=== PATIENT | male | born 1955 | race Caucasian/White ===

== ENCOUNTER 2019-12-01 19:53 | Emergency (ER) | payer MEDICAID, OTHER ==
[~2019-12-01] VITALS: Ht 190.5 cm; Wt 147.0 kg
[2019-12-01 21:20] LABS: Basophils # (auto) 0 10 ^3/uL (0-0.2); Basophils % (auto) 0.4 % (0.0-2.0); Eosinophils # (auto) 0 10 ^3/uL (0-0.8); Eosinophils % (auto) 0.4 % (0.0-7.0); Hematocrit 32.6 % (41.0-53.0); Lymphocytes # (auto) 1.6 10 ^3/uL (0.4-5.4); Lymphocytes % (auto) 15.5 % (10.0-50.0); Mean Corpuscular Hemoglobin 30.5 pg (28.0-32.0); Mean Corpuscular Hgb Conc. 33.6 g/dL (32.0-36.0); Mean Corpuscular Volume 90.6 fL (80.0-100.0); Monocytes # (auto) 0.7 10 ^3/uL (0-1.3); Monocytes % (auto) 6.6 % (0.0-12.0); Neutrophils # (auto) 7.8 10 ^3/uL (1.6-8.6); Neutrophils % (auto) 77.1 % (37.0-80.0); Platelet Count (auto) 233 10^3/uL (140-450); White Blood Cell 10.1 10^3/uL (4.4-10.8)
[2019-12-01 21:31] LABS: Alanine Aminotransferase 31 U/L (16-61); Albumin 3.4 g/dL (3.4-5.0); Anion Gap 5 (5-15); Aspartate Aminotransferase 11 U/L (15-37); BUN/Creatinine Ratio 17.9; Blood Urea Nitrogen 38 mg/dL (7-18); Calcium 8.3 mg/dL (8.5-10.1); Carbon Dioxide 24 mmol/L (21-32); Chloride 110 mmol/L (98-107); GFR African American 41 mL/min; GFR Non-African American 34 mL/min; Glucose 324 mg/dL (74-106); Sodium 139 mmol/L (136-145)
[2019-12-01 21:36] LABS: Alkaline Phosphatase 94 U/L (45-117); Bilirubin, Total 0.1 mg/dL (0.2-1.0)
[2019-12-01 21:38] LABS: Potassium 5.7 mmol/L (3.5-5.1)
[2019-12-01] MEDS ORDERED: SODIUM BICARBONATE 8.4% INJ 50ML SYRINGE IV ONE (22:45)
[2019-12-01] MEDS ORDERED: FUROSEMIDE 20 MG/2 ML VIAL IV ONE (22:45)
[2019-12-01] MEDS ORDERED: InsuLIN REG 1unit/0.01ml Soln (100units/ml) IV ONE (22:45)
[2019-12-01] MEDS ORDERED: DEXTROSE (50%) 50ML SYRG IV ONE (22:45)
[2019-12-02 00:30] VITALS: BP 122/67
[2019-12-02 01:00] LABS: Potassium 4.6 mmol/L (3.5-5.1)
== END 2019-12-02 01:13 | disposition home or self-care (01) ==
LOC: ER 19:53
DX: I51.7 Cardiomegaly (principal); I48.91 Unspecified atrial fibrillation; I11.0 Hypertensive heart disease with heart failure; I50.9 Heart failure, unspecified; J44.9 Chronic obstructive pulmonary disease, unspecified; E11.9 Type 2 diabetes mellitus without complications; K21.9 Gastro-esophageal reflux disease without esophagitis; I10 Essential (primary) hypertension; I25.2 Old myocardial infarction
CPT/HCPCS: 36415; 71045; 80053; 83735; 83880; 84132; 84443; 84484; 85025; 85379; 85610; 85730; 93005; 96374; 96375; 99285; J1815; J1940; J7042

== ENCOUNTER 2019-12-13 17:09 | Inpatient (IN) | payer MEDICAID ==
[~2019-12-13] VITALS: Ht 190.5 cm; Wt 147.0 kg
[2019-12-13] MEDS ORDERED: MORPHINE SULFATE 4 MG/ML SYR/VIAL IV ONE (18:15)
[2019-12-13] MEDS ORDERED: ONDANSETRON HCL 4 MG/2 ML VIAL IV ONE (18:15)
[2019-12-13 18:21] LABS: Basophils # (auto) 0.1 10 ^3/uL (0-0.2); Basophils % (auto) 0.5 % (0.0-2.0); Eosinophils # (auto) 0.1 10 ^3/uL (0-0.8); Eosinophils % (auto) 0.5 % (0.0-7.0); Hematocrit 35.6 % (41.0-53.0); Hemoglobin 12.1 g/dL (13.5-17.5); Lymphocytes # (auto) 1.6 10 ^3/uL (0.4-5.4); Lymphocytes % (auto) 11.2 % (10.0-50.0); Mean Corpuscular Hemoglobin 30.5 pg (28.0-32.0); Mean Corpuscular Volume 89.8 fL (80.0-100.0); Monocytes # (auto) 0.8 10 ^3/uL (0-1.3); Monocytes % (auto) 5.9 % (0.0-12.0); Neutrophils # (auto) 11.6 10 ^3/uL (1.6-8.6); Neutrophils % (auto) 81.9 % (37.0-80.0); Platelet Count (auto) 224 10^3/uL (140-450); Red Blood Cells 3.96 10^6/uL (4.5-5.90); Red Cell Distribution Width 13.2 % (11.8-14.3); White Blood Cell 14.2 10^3/uL (4.4-10.8)
[2019-12-13 18:32] LABS: Alanine Aminotransferase 31 U/L (16-61); Albumin 3.5 g/dL (3.4-5.0); Anion Gap 8 (5-15); BUN/Creatinine Ratio 17.8; Blood Urea Nitrogen 58 mg/dL (7-18); Calcium 8.6 mg/dL (8.5-10.1); Carbon Dioxide 21 mmol/L (21-32); Chloride 103 mmol/L (98-107); GFR African American 25 mL/min; GFR Non-African American 21 mL/min; Glucose 361 mg/dL (74-106); Potassium 5.2 mmol/L (3.5-5.1); Sodium 132 mmol/L (136-145)
[2019-12-13 18:37] LABS: Alkaline Phosphatase 93 U/L (45-117); Aspartate Aminotransferase 6 U/L (15-37); Bilirubin, Total 0.3 mg/dL (0.2-1.0); Total Protein 7.9 g/dL (6.4-8.2)
[2019-12-13] MEDS: NOREPINEPHRINE 8 MG/250ML KIT 250 ML IV SCH (19:35)
[2019-12-13] MEDS ORDERED: NOREPINEPHRINE 8 MG/250ML KIT 250 ML IV ONE (19:38)
[2019-12-13] MEDS ORDERED: SODIUM CHLORIDE 0.9% 250 ML IV ONE (19:45)
[2019-12-13] MEDS ORDERED: NITROGLYCERIN 0.4 MG SL TAB SL PRN (20:00)
[2019-12-13] MEDS ORDERED: DEXTROSE (50%) 50ML SYRG IV PRN ×2 (20:00→20:30)
[2019-12-13] MEDS ORDERED: ONDANSETRON HCL 4 MG/2 ML VIAL IV PRN (20:00)
[2019-12-13] MEDS ORDERED: SODIUM ZIRCONIUM CYCL 10 GM PAK PO ONE (20:00)
[2019-12-13] MEDS ORDERED: InsuLIN REG 1unit/0.01ml Soln (100units/ml) IV ONE (20:00)
[2019-12-13] MEDS ORDERED: DEXTROSE (50%) 50ML SYRG IV ONE (20:00)
[2019-12-13] MEDS ORDERED: MORPHINE SULF INJ 2 MG/ML SYRINGE 1ML IV PRN (20:00)
[2019-12-13] MEDS ORDERED: ACETAMINOPHEN 500 MG TAB PO PRN (20:00)
[2019-12-13] MEDS ORDERED: SODIUM BICARBONATE 8.4% INJ 50ML SYRINGE ONE (20:35)
[2019-12-13] MEDS: SODIUM BICARBONATE 50ML VIAL 50 ML in SOD CHL 0.45% 1,000 ML IV SCH (20:42)
[2019-12-13] MEDS: InsuLIN REG 1unit/0.01ml Soln (100units/ml) SC SCH (21:55)
[2019-12-13] MEDS: ATORVASTATIN 20 MG TAB PO SCH (21:55)
[2019-12-13] MEDS: ACCU-CHEK COMFORT CURVE STRIP VI SCH (21:55)
[2019-12-13] MEDS ORDERED: ACCU-CHEK COMFORT CURVE STRIP VI SCH (22:00)
[2019-12-13] MEDS ORDERED: InsuLIN REG 1unit/0.01ml Soln (100units/ml) SC SCH (22:00)
[2019-12-13] MEDS ORDERED: ALBUMIN 5% 250 ML IV ONE (23:00)
[2019-12-14 00:38] LABS: Urine Bacteria MOD /hpf (None Seen); Urine Blood Negative /uL (Negative); Urine Hyaline Cast MOD /lpf (0 - 2); Urine Mucus FEW (None Seen); Urine Specific Gravity 1.012 (1.001-1.035); Urine WBC 9 /hpf (0 - 3)
[2019-12-14 01:04] LABS: Creatinine, Urine 144 mg/dL (30.0-125.0); Sodium Urine 26 mmol/L (40-220)
[2019-12-14] MEDS: HYDROcodone-ACET 5/325MG TAB PO PRN ×2 (05:52→17:50)
[2019-12-14 06:01] LABS: Basophils # (auto) 0.1 10 ^3/uL (0-0.2); Basophils % (auto) 0.9 % (0.0-2.0); Eosinophils # (auto) 0.2 10 ^3/uL (0-0.8); Hematocrit 30.4 % (41.0-53.0); Hemoglobin 10.4 g/dL (13.5-17.5); Lymphocytes % (auto) 19.5 % (10.0-50.0); Mean Corpuscular Hemoglobin 30.7 pg (28.0-32.0); Mean Corpuscular Hgb Conc. 34.4 g/dL (32.0-36.0); Mean Corpuscular Volume 89.1 fL (80.0-100.0); Monocytes # (auto) 1.1 10 ^3/uL (0-1.3); Monocytes % (auto) 10.4 % (0.0-12.0); Neutrophils # (auto) 6.9 10 ^3/uL (1.6-8.6); Neutrophils % (auto) 67.2 % (37.0-80.0); Platelet Count (auto) 171 10^3/uL (140-450); Red Blood Cells 3.41 10^6/uL (4.5-5.90); Red Cell Distribution Width 13.2 % (11.8-14.3); White Blood Cell 10.3 10^3/uL (4.4-10.8)
[2019-12-14 06:22] LABS: Calcium 8.3 mg/dL (8.5-10.1); Potassium 4.6 mmol/L (3.5-5.1)
[2019-12-14 06:24] LABS: BUN/Creatinine Ratio 16.4
[2019-12-14] MEDS: SODIUM BICARBONATE 50ML VIAL 50 ML in SOD CHL 0.45% 1,000 ML IV SCH (06:30)
[2019-12-14] MEDS: ACCU-CHEK COMFORT CURVE STRIP VI SCH ×4 (06:41→22:41)
[2019-12-14] MEDS: InsuLIN REG 1unit/0.01ml Soln (100units/ml) SC SCH ×4 (06:42→22:55)
[2019-12-14] MEDS: ADENOSINE 123 MG in GIVE UN-DILUTED 0 ML IV STA ×2 (08:28→10:26)
[2019-12-14] MEDS ORDERED: cefTRIAXone 1GM/50ML D5W 50 ML IV SCH (09:00)
[2019-12-14 09:50] VITALS: BP 113/52
[2019-12-14] MEDS: FAMOTIDINE 20 MG TAB PO SCH (10:00)
[2019-12-14] MEDS: ASPirin-EC 81 mg tab PO SCH (10:00)
--- NOTE | 2019-12-14 10:10 | NUR ---
Patient in room, new admit from ER. Patient alert and orientedx4 no s/s of distress noted at this time. Patient oriented to room, call light and facility.
[2019-12-14] MEDS ORDERED: OPTISON 3ml Vial for INJ IV ONE (11:17)
--- NOTE | 2019-12-14 12:15 | NUR ---
PATIENT DECLINED TY INSERTION, EXPLAINED THE BENEFITS TO PATIENT AND PATIENT CONTINUED TO REFUSE, STATED HE WOULD USE THE URINAL TO MEASURE URINE.
[2019-12-14] MEDS: AZITHROMYCIN 500MG/ 250ML 250 ML IV SCH (12:16)
[2019-12-14 13:00] VITALS: BP 119/70
--- NOTE | 2019-12-14 13:54 | NUR ---
PER STRESS LAB PATIENT TO HAVE FIRST HALF OF TEST TODAY AN SECOND HALF TOMORROW. OK TO EAT LUNCH.
[2019-12-14] MEDS: MORPHINE SULF INJ 2 MG/ML SYRINGE 1ML IV PRN ×2 (14:19→22:41)
--- NOTE | 2019-12-14 16:30 | NUR ---
Patient taken down to nuc med for first half of stress test.
[2019-12-14 16:42] VITALS: BP 103/56
[2019-12-14] MEDS: NOREPINEPHRINE 8 MG/250ML KIT 250 ML IV SCH (17:39)
--- NOTE | 2019-12-14 18:01 | NUR ---
Patient states he gave a list to the ER nurse last week and she inputted them. No medications show as inputted, patient will attempt to obtain a list again.
--- NOTE | 2019-12-14 19:30 | NUR ---
Opening Shift Note Assumed care of patient, awake and alert. No S/S of distress/SOB or pain. Instructed on POC and to call for assist PRN. Bed in lowest locked position, call light within reach, side rails up x2, fall precautions in place. Will continue to monitor for changes Q1hr and PRN.
[2019-12-14 21:30] VITALS: BP 103/65
[2019-12-14] MEDS: ATORVASTATIN 20 MG TAB PO SCH (22:40)
[2019-12-14] MEDS: cefTRIAXone 1GM/50ML D5W 50 ML IV SCH (22:40)
[2019-12-14] MEDS: SODIUM CHLORIDE 0.9% 1,000 ML IV SCH (22:40)
[2019-12-15 05:00] VITALS: BP 116/68
[2019-12-15 06:11] LABS: Basophils # (auto) 0.1 10 ^3/uL (0-0.2); Basophils % (auto) 0.8 % (0.0-2.0); Eosinophils # (auto) 0.2 10 ^3/uL (0-0.8); Eosinophils % (auto) 3.1 % (0.0-7.0); Hematocrit 32.4 % (41.0-53.0); Hemoglobin 11.1 g/dL (13.5-17.5); Lymphocytes # (auto) 1.5 10 ^3/uL (0.4-5.4); Lymphocytes % (auto) 19.9 % (10.0-50.0); Mean Corpuscular Hemoglobin 30.6 pg (28.0-32.0); Mean Corpuscular Hgb Conc. 34.2 g/dL (32.0-36.0); Mean Corpuscular Volume 89.5 fL (80.0-100.0); Monocytes # (auto) 0.9 10 ^3/uL (0-1.3); Neutrophils % (auto) 65.2 % (37.0-80.0); Nucleated Red Blood Cells % 0.1 %; Platelet Count (auto) 171 10^3/uL (140-450); Red Blood Cells 3.62 10^6/uL (4.5-5.90); Red Cell Distribution Width 13.1 % (11.8-14.3); White Blood Cell 7.7 10^3/uL (4.4-10.8)
[2019-12-15 06:30] LABS: BUN/Creatinine Ratio 20.3; Potassium 4.8 mmol/L (3.5-5.1)
--- NOTE | 2019-12-15 06:30 | NUR ---
Patient alert and oriented x4, patient still complains of chest pain which he describes as chronic, can come and go when he is home as well. patient stated chest pain is still there and hurts all the time.
[2019-12-15 06:31] LABS: Calcium 8.3 mg/dL (8.5-10.1)
[2019-12-15] MEDS: InsuLIN REG 1unit/0.01ml Soln (100units/ml) SC SCH ×4 (06:35→21:37)
[2019-12-15] MEDS: ACCU-CHEK COMFORT CURVE STRIP VI SCH ×4 (06:35→21:38)
--- NOTE | 2019-12-15 07:38 | NUR ---
patient NPO for Stress test.
[2019-12-15 09:00] VITALS: BP 131/75
[2019-12-15] MEDS: MORPHINE SULF INJ 2 MG/ML SYRINGE 1ML IV PRN ×2 (09:00→19:22)
[2019-12-15] MEDS: SODIUM CHLORIDE 0.9% 1,000 ML IV SCH ×2 (09:09→22:17)
[2019-12-15] MEDS: ASPirin-EC 81 mg tab PO SCH ×2 (09:10→11:13)
[2019-12-15] MEDS: cefTRIAXone 1GM/50ML D5W 50 ML IV SCH ×2 (09:10→21:37)
[2019-12-15] MEDS: FAMOTIDINE 20 MG TAB PO SCH (09:10)
[2019-12-15] MEDS: AZITHROMYCIN 500MG/ 250ML 250 ML IV SCH (09:32)
[2019-12-15] MEDS ORDERED: ALBUTEROL SULF 2.5 MG/0.5ML(0.5%) NEB SOLN NEB ONE (10:45)
--- NOTE | 2019-12-15 10:58 | NUR ---
Patient returned from stress test, patient did not tolerate test, was not able to complete. Patient received breathing treatment and was placed on oxygen. Patient is stable, resting in bed with nasal canula on no s/s of distress at this time.
--- NOTE | 2019-12-15 11:00 | NUR ---
patient will not be re-testing, patient can eat.
[2019-12-15] MEDS: HYDROcodone-ACET 5/325MG TAB PO PRN (11:13)
[2019-12-15 11:15] VITALS: BP 113/73
--- NOTE | 2019-12-15 11:30 | NUR ---
Patient c/o increase in chest pain after the stress test attempt, jazmine at bedside, ok to administer PRN morphine for chest pain. Offered patient Nitro per protocol however patient refused, states "it doesn't work and its a waste of pils, I have some at home and try it all the time", MD aware.
[2019-12-15 13:00] VITALS: BP 125/70
[2019-12-15 17:00] VITALS: BP 123/66
[2019-12-15] MEDS: ATORVASTATIN 20 MG TAB PO SCH (21:37)
[2019-12-15 22:00] VITALS: BP 133/74
[2019-12-16 05:00] VITALS: BP 116/55
--- NOTE | 2019-12-16 06:15 | NUR ---
IV insertion IV access obtained, via clean sterile technique by inserting 22 gauge catheter at LEFT AC after 2 attempt(s). IV secured properly. No trauma to site. Patient tolerated procedure well. NOTE: Previous IV leaking. Removed with catheter intact. Pressure dressing applied.
[2019-12-16] MEDS: MORPHINE SULF INJ 2 MG/ML SYRINGE 1ML IV PRN ×3 (06:30→18:04)
[2019-12-16] MEDS: InsuLIN REG 1unit/0.01ml Soln (100units/ml) SC SCH ×3 (06:39→17:54)
[2019-12-16] MEDS: ACCU-CHEK COMFORT CURVE STRIP VI SCH ×3 (06:39→17:53)
[2019-12-16 07:06] LABS: Basophils # (auto) 0.1 10 ^3/uL (0-0.2); Eosinophils # (auto) 0.2 10 ^3/uL (0-0.8); Eosinophils % (auto) 2.4 % (0.0-7.0); Hematocrit 32.8 % (41.0-53.0); Hemoglobin 11.4 g/dL (13.5-17.5); Lymphocytes # (auto) 1.7 10 ^3/uL (0.4-5.4); Lymphocytes % (auto) 18.1 % (10.0-50.0); Mean Corpuscular Hemoglobin 30.8 pg (28.0-32.0); Mean Corpuscular Hgb Conc. 34.8 g/dL (32.0-36.0); Mean Corpuscular Volume 88.4 fL (80.0-100.0); Monocytes # (auto) 0.8 10 ^3/uL (0-1.3); Neutrophils # (auto) 6.4 10 ^3/uL (1.6-8.6); Neutrophils % (auto) 69.5 % (37.0-80.0); Platelet Count (auto) 200 10^3/uL (140-450); Red Blood Cells 3.71 10^6/uL (4.5-5.90); White Blood Cell 9.2 10^3/uL (4.4-10.8)
[2019-12-16 07:25] LABS: BUN/Creatinine Ratio 21.6; Calcium 8.8 mg/dL (8.5-10.1); Potassium 4.6 mmol/L (3.5-5.1)
--- NOTE | 2019-12-16 07:30 | NUR ---
Opening shift note Assumed care of patient from NOC Rn. Patient is Aox4, no signs and symptoms of distress noted. Bed is in lowest locked position, side rails up x2, can call light within reach. Updated patient on plan of care and patient verbalized understanding. Will continue to monitor q1hr and PRN.
[2019-12-16 09:00] VITALS: BP 133/77
[2019-12-16] MEDS ORDERED: AZITHROMYCIN 250 MG TAB PO SCH (10:00)
[2019-12-16] MEDS: cefTRIAXone 1GM/50ML D5W 50 ML IV SCH (10:21)
[2019-12-16] MEDS: FAMOTIDINE 20 MG TAB PO SCH (10:21)
[2019-12-16] MEDS: SODIUM CHLORIDE 0.9% 1,000 ML IV SCH (11:45)
[2019-12-16 13:00] VITALS: BP 133/74
--- NOTE | 2019-12-16 14:40 | NUR ---
Cooling Measures applied. Patient currently has temp of 99.2 , cooling measures in place.
--- NOTE | 2019-12-16 16:00 | NUR ---
Temperature reassessment Patients temperature is 99.4. Patient removed ice packs, educated patient about the importance of maintaining cooling measures. Patient verbalized understanding and cooling measures are in place. Will continue to monitor q1hr and PRN .
[2019-12-16 17:00] VITALS: BP 125/76
--- NOTE | 2019-12-16 17:45 | NUR ---
temperature reassessment Patients temperature is 98.2. No signs and symptoms of distress noted. Will continue care.
--- NOTE | 2019-12-16 19:20 | NUR ---
Opening Shift Note Assumed care of patient, awake, alert and oriented x4, on room air with even and unlabored respirations, no S/S of distress/SOB or pain. Patient able to ambulate independently, bed in lowest locked position, side rails x2, and call light within reach. Instructed on POC and to call for assist PRN, will continue to monitor for changes Q1hr and PRN.
--- NOTE | 2019-12-16 19:27 | NUR ---
End of shift note Endorsed care to NOC EMILIA Hanley. No s/s of distress noted.
--- NOTE | 2019-12-16 19:50 | NUR ---
AMA Note ROBERT FLANNERY states they want to leave the hospital Against Medical Advice (AMA). Patient encouraged to stay for further treatment/stabilization. Andrea Kamara NP Hospitalist notified of patient's wishes. Patient advised of the risks and benefits of leaving AMA. Patient verbalized understanding. Patient encouraged to return to the ER if symptoms do not improve or worsen.
--- NOTE | 2019-12-16 20:50 | NUR ---
AMA PATIENT SIGNED AMA, TELE MONITOR AND IV WERE DC'D FROM PATIENT.
== END 2019-12-16 20:50 | disposition left against medical advice (07) | DRG 720 ==
LOC: ER 17:09 → TELE 17:10 → TELE-WESTW 12-14 09:50
PROVIDERS: ADMIT Nurse Practitioner Acute Care; ATTEND Internal Medicine Nephrology
DX: A41.9 Sepsis, unspecified organism (principal); N17.0 Acute kidney failure with tubular necrosis; E11.22 Type 2 diabetes mellitus with diabetic chronic kidney disease; E11.65 Type 2 diabetes mellitus with hyperglycemia; E66.01 Morbid (severe) obesity due to excess calories; I24.9 Acute ischemic heart disease, unspecified; I48.0 Paroxysmal atrial fibrillation; R55 Syncope and collapse; N18.3 Chronic kidney disease, stage 3 (moderate); E87.5 Hyperkalemia; J44.9 Chronic obstructive pulmonary disease, unspecified; Z91.14 Patient's other noncompliance with medication regimen; N39.0 Urinary tract infection, site not specified; Z53.29 Procedure and treatment not carried out because of patient's decision for other reasons; E78.5 Hyperlipidemia, unspecified; N28.1 Cyst of kidney, acquired; I13.0 Hypertensive heart and chronic kidney disease with heart failure and stage 1 through stage 4 chronic kidney disease, or unspecified chronic kidney disease; I50.9 Heart failure, unspecified; Z82.49 Family history of ischemic heart disease and other diseases of the circulatory system; Z68.41 Body mass index [BMI] 40.0-44.9, adult
CPT/HCPCS: 36415; 71045; 76775; 80048; 80053; 81001; 82570; 82962; 83036; 83880; 83930; 84100; 84300; 84484; 85025; 85379; 86141; 87040; 87086; 93005; 93306; 96361; 96365; 96375; 99291; G0378; J0153; J0696; J1815; J2405; Q9956

== ENCOUNTER 2020-08-15 19:29 | Emergency (ER) | payer MEDICAID ==
[~2020-08-15] VITALS: Ht 190.5 cm; Wt 145.1 kg
[2020-08-15 21:14] LABS: Basophils # (auto) 0 10 ^3/uL (0-0.2); Basophils % (auto) 0.3 % (0.0-2.0); Eosinophils # (auto) 0.3 10 ^3/uL (0-0.8); Eosinophils % (auto) 3.3 % (0.0-7.0); Hematocrit 35.6 % (41.0-53.0); Hemoglobin 12.1 g/dL (13.5-17.5); Lymphocytes # (auto) 1.9 10 ^3/uL (0.4-5.4); Lymphocytes % (auto) 21.3 % (10.0-50.0); Mean Corpuscular Hemoglobin 28.8 pg (28.0-32.0); Mean Corpuscular Hgb Conc. 34.1 g/dL (32.0-36.0); Mean Corpuscular Volume 84.4 fL (80.0-100.0); Monocytes # (auto) 0.8 10 ^3/uL (0-1.3); Monocytes % (auto) 8.8 % (0.0-12.0); Neutrophils # (auto) 5.9 10 ^3/uL (1.6-8.6); Neutrophils % (auto) 66.3 % (37.0-80.0); Nucleated Red Blood Cells % 0.1 %; Platelet Count (auto) 210 10^3/uL (140-450); Red Blood Cells 4.22 10^6/uL (4.5-5.90); Red Cell Distribution Width 14.3 % (11.8-14.3)
[2020-08-15] MEDS ORDERED: ONDANSETRON HCL 4 MG/2 ML VIAL IV ONE (21:15)
[2020-08-15] MEDS ORDERED: MORPHINE SULFATE 4 MG/ML SYR/VIAL IV ONE (21:15)
[2020-08-15 21:35] LABS: INR 0.97 (0.9-1.15); Partial Thromboplastin Time 24.3 sec (23.0-31.2)
[2020-08-15 21:37] LABS: Albumin 3.3 g/dL (3.4-5.0); Anion Gap 3 (5-15); Blood Urea Nitrogen 27 mg/dL (7-18); Calcium 8.2 mg/dL (8.5-10.1); Carbon Dioxide 27 mmol/L (21-32); Chloride 104 mmol/L (98-107); Glucose 334 mg/dL (74-106); Potassium 4.8 mmol/L (3.5-5.1); Sodium 134 mmol/L (136-145)
[2020-08-15 21:44] LABS: Alanine Aminotransferase 50 U/L (16-61); Alkaline Phosphatase 84 U/L (45-117); Aspartate Aminotransferase 28 U/L (15-37); BUN/Creatinine Ratio 13.5; Bilirubin, Total 0.3 mg/dL (0.2-1.0); GFR African American 43 mL/min; GFR Non-African American 36 mL/min; Total Protein 7.4 g/dL (6.4-8.2)
[2020-08-15 23:48] VITALS: BP 130/66
== END 2020-08-16 00:19 | disposition left against medical advice (07) ==
LOC: EDBD 19:29 → ER 19:33
DX: R07.2 Precordial pain (principal); R10.9 Unspecified abdominal pain; E11.9 Type 2 diabetes mellitus without complications; I11.0 Hypertensive heart disease with heart failure; I50.9 Heart failure, unspecified; K21.9 Gastro-esophageal reflux disease without esophagitis
CPT/HCPCS: 36415; 71045; 74176; 80053; 82962; 83880; 84484; 85025; 85610; 85730; 93005; 96374; 96375; 99285; J2270; J2405

== ENCOUNTER 2021-02-26 14:52 | Emergency (ER) | payer OTHER, MEDICAID ==
[~2021-02-26] VITALS: Ht 190.5 cm; Wt 140.2 kg
[2021-02-26 14:53] VITALS: BP 94/69
[2021-02-26 15:41] LABS: Basophils # (auto) 0 10 ^3/uL (0-0.2); Basophils % (auto) 0.3 % (0.0-2.0); Eosinophils # (auto) 0.4 10 ^3/uL (0-0.8); Eosinophils % (auto) 3.6 % (0.0-7.0); Hematocrit 37.4 % (41.0-53.0); Hemoglobin 12.7 g/dL (13.5-17.5); Lymphocytes # (auto) 2.5 10 ^3/uL (0.4-5.4); Lymphocytes % (auto) 23.7 % (10.0-50.0); Mean Corpuscular Hemoglobin 29.5 pg (28.0-32.0); Mean Corpuscular Hgb Conc. 34.1 g/dL (32.0-36.0); Mean Corpuscular Volume 86.4 fL (80.0-100.0); Monocytes # (auto) 0.8 10 ^3/uL (0-1.3); Monocytes % (auto) 7.3 % (0.0-12.0); Neutrophils # (auto) 6.9 10 ^3/uL (1.6-8.6); Neutrophils % (auto) 65.1 % (37.0-80.0); Nucleated Red Blood Cells % 0.1 %; Red Blood Cells 4.32 10^6/uL (4.5-5.90); Red Cell Distribution Width 13.9 % (11.8-14.3); White Blood Cell 10.6 10^3/uL (4.4-10.8)
[2021-02-26] MEDS ORDERED: FUROSEMIDE 20 MG TAB PO ONE (15:45)
[2021-02-26 16:00] LABS: Alanine Aminotransferase 23 U/L (16-61); Anion Gap 6 (5-15); Aspartate Aminotransferase 10 U/L (15-37); BUN/Creatinine Ratio 8.2; Blood Urea Nitrogen 18 mg/dL (7-18); Calcium 8.4 mg/dL (8.5-10.1); Carbon Dioxide 25 mmol/L (21-32); Chloride 106 mmol/L (98-107); GFR African American 39 mL/min; GFR Non-African American 32 mL/min; Glucose 197 mg/dL (74-106); Potassium 4.4 mmol/L (3.5-5.1); Sodium 137 mmol/L (136-145)
[2021-02-26 16:05] LABS: Alkaline Phosphatase 79 U/L (45-117); Bilirubin, Total 0.2 mg/dL (0.2-1.0); Total Protein 7.5 g/dL (6.4-8.2)
== END 2021-02-26 17:24 | disposition home or self-care (01) ==
LOC: ER 14:52
DX: I11.0 Hypertensive heart disease with heart failure (principal); I50.9 Heart failure, unspecified; R00.2 Palpitations; E11.9 Type 2 diabetes mellitus without complications; J44.9 Chronic obstructive pulmonary disease, unspecified; I25.2 Old myocardial infarction; I48.91 Unspecified atrial fibrillation; K21.9 Gastro-esophageal reflux disease without esophagitis
CPT/HCPCS: 36415; 71046; 80053; 84484; 85025; 93005

== ENCOUNTER 2021-10-16 00:18 | Emergency (ER) | payer OTHER, MEDICAID ==
[~2021-10-16] VITALS: Ht 188 cm; Wt 113.4 kg
[2021-10-16 01:01] LABS: Basophils # (auto) 0.1 10 ^3/uL (0-0.2); Eosinophils # (auto) 0.3 10 ^3/uL (0-0.8); Eosinophils % (auto) 2.4 % (0.0-7.0); Hematocrit 39.9 % (41.0-53.0); Hemoglobin 13.6 g/dL (13.5-17.5); Lymphocytes # (auto) 1.6 10 ^3/uL (0.4-5.4); Lymphocytes % (auto) 12.8 % (10.0-50.0); Mean Corpuscular Hemoglobin 28.9 pg (28.0-32.0); Mean Corpuscular Hgb Conc. 33.9 g/dL (32.0-36.0); Monocytes # (auto) 0.6 10 ^3/uL (0-1.3); Monocytes % (auto) 4.5 % (0.0-12.0); Neutrophils # (auto) 10.2 10 ^3/uL (1.6-8.6); Neutrophils % (auto) 79.3 % (37.0-80.0); Nucleated Red Blood Cells % 0.1 %; Red Cell Distribution Width 14.2 % (11.8-14.3); White Blood Cell 12.9 10^3/uL (4.4-10.8)
[2021-10-16 01:19] LABS: Albumin 3.3 g/dL (3.4-5.0); Calcium 8.5 mg/dL (8.5-10.1); Potassium 4.4 mmol/L (3.5-5.1)
[2021-10-16 01:22] LABS: Bilirubin, Total 0.3 mg/dL (0.2-1.0)
[2021-10-16] MEDS ORDERED: IOHEXOL 300 MG/ML 100ML BOTTLE IJ ONE ×2 (01:55→04:03)
[2021-10-16] MEDS ORDERED: SODIUM CHLORIDE 0.9% 500 ML IV ONE (02:00)
[2021-10-16] MEDS ORDERED: ONDANSETRON HCL 4 MG/2 ML VIAL IV ONE (02:00)
[2021-10-16] MEDS ORDERED: HYDROmorphone HCL 2 MG/ML VL/or syr IV ONE ×3 (02:00→07:00)
[2021-10-16 02:36] LABS: INR 1.1 (0.9-1.15)
[2021-10-16] MEDS ORDERED: ONDA-144 PO (06:29)
[2021-10-16] MEDS ORDERED: AMOX-277 PO (06:29)
[2021-10-16 07:00] VITALS: BP 159/103
== END 2021-10-16 06:27 | disposition home or self-care (01) ==
LOC: EDBD 00:18 → ER 00:18 → EDUNIT# 00:18 → ER 06:27
DX: K57.32 Diverticulitis of large intestine without perforation or abscess without bleeding (principal); I11.0 Hypertensive heart disease with heart failure; I50.9 Heart failure, unspecified; I48.91 Unspecified atrial fibrillation; I25.2 Old myocardial infarction; K21.9 Gastro-esophageal reflux disease without esophagitis
CPT/HCPCS: 36415; 71045; 74177; 80053; 83605; 83690; 84484; 85025; 85610; 93005; 96361; 96374; 96375; 96376; 99285; J1170; J2405; J7040; Q9967

== ENCOUNTER 2021-10-18 15:22 | Inpatient (IN) | payer OTHER, MEDICAID ==
[~2021-10-18] VITALS: Ht 190.5 cm; Wt 149.0 kg
[~2021-10-18 15:22] MED LIST: AMOX-277 PO; ONDA-144 PO
[2021-10-18] MEDS ORDERED: ALUM & MAG HYDROX-SIMETH LIQ(MAALOX) 30 ML PO ONE (15:45)
[2021-10-18] MEDS ORDERED: SODIUM CHLORIDE 0.9% 1,000 ML IV ONE (15:45)
[2021-10-18] MEDS ORDERED: DONNATAL 5ml ORAL Elix (BELLADONNA ALK-PHENOBARB) PO ONE (15:45)
[2021-10-18] MEDS ORDERED: LIDOCAINE VISCOUS 2% 15ML UD PO ONE (15:45)
[2021-10-18 16:11] LABS: Basophils # (auto) 0.1 10 ^3/uL (0-0.2); Basophils % (auto) 1.2 % (0.0-2.0); Eosinophils # (auto) 0.2 10 ^3/uL (0-0.8); Eosinophils % (auto) 1.8 % (0.0-7.0); Hematocrit 38.2 % (41.0-53.0); Hemoglobin 13.5 g/dL (13.5-17.5); Lymphocytes # (auto) 1.7 10 ^3/uL (0.4-5.4); Lymphocytes % (auto) 15.7 % (10.0-50.0); Mean Corpuscular Hemoglobin 29.9 pg (28.0-32.0); Mean Corpuscular Hgb Conc. 35.3 g/dL (32.0-36.0); Mean Corpuscular Volume 84.7 fL (80.0-100.0); Monocytes # (auto) 0.9 10 ^3/uL (0-1.3); Monocytes % (auto) 8.6 % (0.0-12.0); Neutrophils # (auto) 7.7 10 ^3/uL (1.6-8.6); Neutrophils % (auto) 72.7 % (37.0-80.0); Red Blood Cells 4.51 10^6/uL (4.5-5.90); Red Cell Distribution Width 14.5 % (11.8-14.3); White Blood Cell 10.5 10^3/uL (4.4-10.8)
[2021-10-18 16:32] LABS: Albumin 3.3 g/dL (3.4-5.0); Calcium 8.4 mg/dL (8.5-10.1); Potassium 3.5 mmol/L (3.5-5.1)
[2021-10-18 16:36] LABS: Bilirubin, Total 0.4 mg/dL (0.2-1.0); Lactic Acid w/Reflex 2.1 mmol/L (0.4-2.0); Total Protein 7.4 g/dL (6.4-8.2)
[2021-10-18] MEDS ORDERED: NITROGLYCERIN 0.4 MG SL TAB SL ONE ×2 (21:30→21:45)
[2021-10-18] MEDS ORDERED: DEXTROSE (50%) 50ML SYRG IV PRN (21:45)
[2021-10-18] MEDS ORDERED: ONDANSETRON HCL 4 MG/2 ML VIAL IV PRN (21:45)
[2021-10-18] MEDS ORDERED: InsuLIN REG 1unit/0.01ml Soln (100units/ml) SC SCH (22:00)
[2021-10-18] MEDS: ACCU-CHEK COMFORT CURVE STRIP VI SCH (22:00)
[2021-10-19 01:00] VITALS: BP 148/93
[2021-10-19] MEDS: MORPHINE SULFATE INJECTION 2 MG/ML SYRG IV PRN ×2 (01:21→11:48)
[2021-10-19] MEDS ORDERED: PANT40T PO (02:48)
[2021-10-19] MEDS ORDERED: AMIO200T33 PO (02:48)
[2021-10-19] MEDS ORDERED: CARV25TA55 PO (02:48)
[2021-10-19] MEDS ORDERED: DILT30TA PO (02:48)
[2021-10-19] MEDS ORDERED: GLIP5TAB12 PO (02:48)
[2021-10-19] MEDS ORDERED: FURO40TA4 PO (02:48)
[2021-10-19] MEDS ORDERED: ATO40T PO (02:48)
[2021-10-19] MEDS ORDERED: APIX5TAB PO (02:48)
[2021-10-19] MEDS ORDERED: ATOR20TA PO (02:48)
[2021-10-19] MEDS ORDERED: HYDR-4798 PO (02:48)
[2021-10-19] MEDS ORDERED: LISI40TA11 PO (02:48)
[2021-10-19 05:00] VITALS: BP 162/98
[2021-10-19 06:12] VITALS: BP 142/89
[2021-10-19] MEDS ORDERED: HYDROcodone-ACET 5/325MG TAB PO ONE (06:15)
[2021-10-19] MEDS: ACCU-CHEK COMFORT CURVE STRIP VI SCH ×2 (06:31→11:30)
[2021-10-19] MEDS: InsuLIN REG 1unit/0.01ml Soln (100units/ml) SC SCH ×2 (06:31→11:30)
[2021-10-19 09:00] VITALS: BP 134/99
[2021-10-19] MEDS: NITROGLYCERIN 0.4 MG SL TAB SL PRN ×2 (10:08→10:13)
[2021-10-19] MEDS ORDERED: PANTOPRAZOLE 40 MG TAB PO SCH (10:15)
[2021-10-19] MEDS ORDERED: CARVEDILOL 12.5 MG TAB PO SCH (10:15)
[2021-10-19 13:00] VITALS: BP 118/74
[2021-10-19] MEDS ORDERED: OPTISON 3ml Vial for INJ IV ONE (14:19)
[2021-10-19 17:00] VITALS: BP 148/100
[2021-10-20 13:00] LABS: Creatinine, Urine 135 mg/dL (30.0-125.0); Sodium Urine 158 mmol/L (40-220)
== END 2021-10-19 19:40 | disposition left against medical advice (07) | DRG 313 ==
LOC: ER 15:22 → TELE 21:39 → TELE-CENTR 23:14
PROVIDERS: ADMIT Internal Medicine; ATTEND Internal Medicine
DX: R07.9 Chest pain, unspecified (principal); I48.92 Unspecified atrial flutter; Z68.41 Body mass index [BMI] 40.0-44.9, adult; E11.9 Type 2 diabetes mellitus without complications; E66.9 Obesity, unspecified; I11.0 Hypertensive heart disease with heart failure; I48.91 Unspecified atrial fibrillation; I50.9 Heart failure, unspecified; J44.9 Chronic obstructive pulmonary disease, unspecified; K21.9 Gastro-esophageal reflux disease without esophagitis; I25.2 Old myocardial infarction; Z82.49 Family history of ischemic heart disease and other diseases of the circulatory system; Z53.29 Procedure and treatment not carried out because of patient's decision for other reasons; Z20.822 Contact with and (suspected) exposure to COVID-19
CPT/HCPCS: 36415; 71045; 80053; 82570; 82962; 83036; 83605; 83690; 84300; 84484; 85025; 87086; 93005; 93306; G0378; J1815; Q9956

== ENCOUNTER 2024-09-28 12:17 | Inpatient (IN) | payer OTHER, MEDICAID ==
[~2024-09-28] VITALS: Ht 190.5 cm; Wt 141.7 kg
[~2024-09-28 12:17] MED LIST changes: +AMIO100T3 PO; +AMIO200T33 PO; -AMOX-277 PO; +AMOX875T4 PO; +APIX5TAB PO; +ATOR-507 PO; +ATOR20TA PO; +CARV12.544 PO; +CARV25TA55 PO; +DILT30TA PO; +EMPA1TAB3 PO; +FURO40TA4 PO; +GLIP10TA9 PO; +GLIP5TAB21 PO; +HYDR-4798 PO; +HYDR50TA47 PO; +INSU1INJ19 SC; +LISI40TA16 PO; +PANT40T PO; +TAMS0.4C39 PO
--- NOTE | 2024-09-28 12:24 | ED.PDOC ---
HPI Comments 69 year old male MONSERRAT presents to the ED with chief complaint of chest pain. Patient reports that he has been experiencing substernal 10/10 sharp chest pain with associated SOB for the past 3 days, worsening today. EMS relays that the patient's HR was noted in the 180s, so he was given 6mg of Adenosine and then another 12mg of Adenosine with no relief in HR noted. Patient denies any N/V/D, leg swelling, fever, dizziness, headache, blurred vision, numbness, or weakness. Time Seen by MD: 12:21 Primary Care Provider: UNKNOWN Reviewed Notes: Nurses Notes, Bottom Stainer Notes, Medications, Allergies Allergies: Coded Allergies: No Known Drug Allergy (Verified Allergy, Unknown, 12/01/19) Home Meds Active Scripts Ondansetron (Zofran) 4 Mg Tab, 4 MG PO Q8HPRN PRN, #15 MG Prov:GRACE ARORA MD 10/16/21 Amoxicillin & Pot Clavulanate (Amoxicillin/Potassium Cla) 875 Mg Tab, 1 TAB PO BID, #20 TAB Prov:GRACE ARORA MD 10/16/21 Reported Medications Hydrocodone-Acetaminophen (Hydrocodone Bitartrate/AC 10-325 mg) 1 Tab Tab, 1 TAB PO Q8HP, TAB 10/19/21 Amiodarone Hcl (Amiodarone Hcl) 200 Mg Tab, 200 MG PO Q12HR for 30 Days 10/19/21 Atorvastatin Calcium (Lipitor) 20 Mg Tab, 1 TAB PO DAILY, #90 TAB 1 Refill 10/19/21 Atorvastatin Calcium (Lipitor) 40 Mg Tab, 1 TAB PO QPM, #90 TAB 1 Refill 10/19/21 Carvedilol (Carvedilol) 25 Mg Tab, 25 MG PO Q12HR for 30 Days, MG 10/19/21 Furosemide (Furosemide) 40 Mg Tab, 40 MG PO DAILY for 30 Days 10/19/21 Lisinopril (Lisinopril) 40 Mg Tab, 40 MG PO DAILY for 30 Days, MG 10/19/21 Diltiazem Hcl (Diltiazem Hcl) 30 Mg Tab, PO Q8HR for 30 Days, MG 10/19/21 Diltiazem Hcl (Diltiazem Hcl) 30 Mg Tab, 30 MG PO Q8HR for 30 Days, MG 10/19/21 Pantoprazole Sodium Sesquihydr (Pantoprazole Sodium) 40 Mg Tab, 40 MG PO DAILY, TAB 10/19/21 Glipizide (Glipizide) 5 Mg Tab, 5 MG PO DAILY for 30 Days, MG 10/19/21 Apixaban Base (ELIQUIS) 5 Mg Tab, 5 MG PO BID, TAB 10/19/21 Information Source: Patient, Emergency Med Personnel Mode of Arrival: EMS Severity: Moderate Timing: Days Duration: Since onset Prehospital treatment: 12 Lead EKG, Other (Adenosine 6mg and 12mg) Location: Substernal Radiation: No Radiation Quality: Sharp Onset: At Rest Cardiac Risk Factors: Family History, HTN, Diabetes PE Risk Factors: None History of: Similar pain in past, OK Associated Signs and Symptoms: SOB Past Medical History PAST MEDICAL HISTORY: AFIB, CHF, COPD, DM, GERD, HTN, [place] Surgical History (Other): Cardiac ablasion Family History Family History: Reviewed,noncontributory to illness, Family hx of heart bebo Social History Smoker: Non-Smoker Alcohol: Denies ETOH Use Drugs: Marijuana Lives In: Home Constitutional: denies: chills, diaphoresis, fatigue, fever, malaise, sweats, weakness, others EENTM: denies: blurred vision, double vision, ear bleeding, ear discharge, ear drainage, ear pain, ear ringing, eye pain, eye redness, hearing loss, mouth pa in, mouth swelling, nasal discharge, nose bleeding, nose congestion, nose pain, photophobia, tearing, throat pain, throat swelling, voice changes, others Respiratory: reports: shortness of breath; denies: cough, hemoptysis, orthopnea, SOB at rest, SOB with excertion, stridor, wheezing, others Cardiovascular: reports: chest pain; denies: dizzy spells, diaphoresis, Dyspnea on exertion, edema, irregular heart beat, left arm pain, lightheadedness, palpitations, PND, syncope, others Gastrointestinal: denies: abdomen distended, abdominal pain, blood streaked bowels, constipated, diarrhea, dysphagia, difficulty swallowing, hematemesis, melena, nausea, poor appetite, poor fluid intake, rectal bleeding, rectal pain, vomiting, others Genitourinary: denies: burning, dysuria, flank pain, frequency, hematuria, incontinence, penile discharge, penile sore, pain, testicle pain, testicle swelling, urgency, others Neurological: denies: dizziness, fainting, headache, left sided numbness, left sided weakness, numbness, paresthesia, pre-existing deficit, right sided numbness, right sided weakness, seizure, speech problems, tingling, tremors, weakness, others Musculoskeletal: denies: back pain, gout, joint pain, joint swelling, muscle p ain, muscle stiffness, neck pain, others Integumetry: denies: bruises, change in color, change in hair/nails, dryness, laceration, lesions, lumps, rash, wounds, others Allergic/Immunocompromised: denies: Difficulty Healing, Frequent Infections, Hives, Itching, others Hematologic/Lymphatic: denies: anemia, blood clots, easy bleeding, easy bruising, swollen glands, others Endocrine: denies: excessive hunger, excessive sweating, excessive thirst, excessive urination, flushing, intolerance to cold, intolerance to heat, unexplained weight gain, unexplained weight loss, others Psychiatric: denies: anxiety, bipolar disorder, depression, hopeless, panic disorder, schizophrenia, sleepless, suicidal, others All Other Systems: Reviewed and Negative Physical Exam General Appearance: Moderate Distress, Obese HEENT: Normal ENT Inspection, Pharynx Normal, TMs Normal Neck: Full Range of Motion, Non-Tender, Normal, Normal Inspection Respiratory: Chest Non-Tender, Lungs Clear, No Accessory Muscle Use, No Respiratory Distress, Normal Breath Sounds Cardiovascular: Irregular, No Edema, No JVD, No Murmur, No Gallop, Tachycardia Breast Exam: Deferred Gastrointestinal: No Organomegaly, Non Tender, No Pulsatile Mass, Normal Bowel Sounds, Soft Genitalia: Deferred Pelvic: Deferred Rectal: Deferred Extremities: No calf tenderness, Normal capillary refill, No pedal edema Musculoskeletal : Apperance: Normal Neurologic: Alert, material attendant II-XII nml as Tested, Motor Weakness, Normal Affect, Normal Mood, No Sensory Deficits Cerebellar Function: Normal Reflexes: Normal Skin: Dry, Pallor, Warm Lymphatic: No Adenopathy EKG EKG : Pulse Rate (adult): 175 [place]: Normal Cardiac Rhythm: Afib Block: None Hypertrophy: None ST: Normal Was a procedure done? Was a procedure done?: No CP Differential Dx Differential Diagnosis: A-fib X-Ray, Labs, Meds, VS Vital Signs Date Time Temp Pulse Resp B/P (MAP) Pulse Ox O2 Delivery O2 Flow Rate FiO2 09/28/24 12:24 175 09/28/24 12:20 175 09/28/24 12:20 97.6 145 20 136/64 (88) 95 97.6 09/28/24 12:17 175 Lab Test 09/28/24 13:38 09/28/24 12:44 Range/Units Troponin I High Sensitivity 13 14 </=54 ng/L White Blood Count 11.1 H 4.4-10.8 10^3/uL Red Blood Count 4.37 L 4.5-5.90 10^6/uL Hemoglobin 13.2 L 13.5-17.5 g/dL Hematocrit 39.1 L 41.0-53.0 % Mean Corpuscular Volume 89.4 80.0-100.0 fL Mean Corpuscular Hemoglobin 30.3 28.0-32.0 pg Mean Corpuscular Hemoglobin Concent 33.8 32.0-36.0 g/dL Red Cell Distribution Width 13.8 11.8-14.3 % Platelet Count 253 140-450 10^3/uL Mean Platelet Volume 9.5 6.9-10.8 fL Neutrophils (%) (Auto) 70.5 37.0-80.0 % Lymphocytes (%) (Auto) 20.6 10.0-50.0 % Monocytes (%) (Auto) 6.7 0.0-12.0 % Eosinophils (%) (Auto) 1.4 0.0-7.0 % Basophils (%) (Auto) 0.8 0.0-2.0 % Neutrophils # (Auto) 7.8 1.6-8.6 10 ^3/uL Lymphocytes # (Auto) 2.3 0.4-5.4 10 ^3/uL Monocytes # (Auto) 0.7 0-1.3 10 ^3/uL Eosinophils # (Auto) 0.2 0-0.8 10 ^3/uL Basophils # (Auto) 0.1 0-0.2 10 ^3/uL Nucleated Red Blood Cells 0.0 % D-Dimer, Quantitative 0.61 H 0.0-0.49 mg/L FEU Sodium Level 139 136-145 mmol/L Potassium Level 4.2 3.5-5.1 mmol/L Chloride Level 109 H 98-107 mmol/L Carbon Dioxide Level 21 20-31 mmol/L Anion Gap 9 5-15 Blood Urea Nitrogen 23 9-23 mg/dL Creatinine 2.02 H 0.700-1.30 mg/dL Glomerular Filtration Rate Calc 35 >90 mL/min BUN/Creatinine Ratio 11.4 10.0-20.0 Serum Glucose 409 *H 74-106 mg/dL Calcium Level 8.8 8.7-10.4 mg/dL Magnesium Level 2.0 1.6-2.6 mg/dL B-Type Natriuretic Peptide 259.00 0-100 pg/mL Current Medications Medications (Trade) Dose Ordered Sig/Ted Route Start Time Stop Time Status Last Admin Amiodarone HCl 100 ml @ 600 mls/hr ONCE ONCE IV 09/28/24 12:30 09/28/24 12:39 DC 09/28/24 12:30 Chest XR indicates: No acute cardiopulmonary disease. The patient's heart rate is still significantly elevated so the patient was then given amiodarone per protocol The patient's CBC shows a slightly elevated white blood cell count of 11.1 The chemistry panel is within normal limits except for creatinine of 2.02 The D-dimer is elevated at 0.61 The patient was hyperglycemic at 409 The patient was given insulin 5 units IV push for the hyperglycemia We will continue the patient on the amiodarone drip. We are consulting with Dr. Mao The patient will be admitted Images Reviewed?: Images reviewed and evaluated by me Time of 1ST Reevaluation: 14:37 Reevaluation 1ST: Unchanged Patient Education/Counseling: Diagnosis, Treatment, Prognosis Family Education/Counseling: No Family Present Additional Information -Reviewed patient's previous visit(s): 10/18/21 for chest pain - The following tests were ordered, and results were reviewed by me: CBC, BMP, Troponin, UA, EKG, CXR - Additional information was gathered from interviewing the following independent Historian: EMS - I reviewed and agreed with the following test results read by other provider: CXR - I discussed treatments and results with medical personnel and: patient Comprehensive systems review obtained and negative except for what is stated in the HPI. Departure 1 Departure Time of Disposition: 14:36 Impression: Primary Impression: Atrial fibrillation with rapid ventricular response Additional Impressions: Hypotension Qualified Codes: I95.0 - Idiopathic hypotension Diabetes mellitus type II, uncontrolled Qualified Codes: E11.65 - Type 2 diabetes mellitus with hyperglycemia Disposition: ADMITTED INPATIENT Admit to: ICU Condition: Other Critical Care Note Critical Care Time?: Yes (35 min-critical care time only) Stability Stability form required: Yes Unstable for transfer: ICU, CCU, PCU, SALLIE (Intensive VS monitoring), ED Physician Assesment (Clinical assesment) Heart Score Heart Score: Heart Score Response (Comments) Value History Highly Suspicious 2 EKG Repolarization Disturb 1 Age >65 2 Risk Factors >3 or Hx ASHD 2 Troponin Normal limit 0 Total 7 I personally scribed for THOR STONER MD ([email or web address]) on 09/28/24 at 12:24. Electronically submitted by Gray Valdez ([email or web address]). I personally scribed for THOR STONER MD ([email or web address]) on 09/28/24 at 12:59. Electronically submitted by Gray Vadlez ([email or web address]). THOR STONER MD Sep 28, 2024 12:24
[2024-09-28] MEDS: AMIODARONE BOLUS KIT 100 ML IV ONE (12:30)
[2024-09-28] MEDS: AMIODARONE 360mg/200mL PREMIX 200 ML IV ONE (12:45)
[2024-09-28] MEDS: ASPirin 81 mg TAB PO ONE (12:50)
--- NOTE | 2024-09-28 12:53 | DVH ---
EXAM: XY CHEST PORTABLE Indication: sob Technique: Single frontal view of the chest was obtained Comparison: CHEST PORTABLE on DOS: 10/18/21, CXRP on DOS: 10/18/21, CHEST XRAY 1 VIEW on DOS: 10/16/21, CXR1 on DOS: 10/16/21, CHEST PORTABLE on DOS: 08/15/20 FINDINGS: Lines and Tubes: None Lungs: No focal consolidation. Pleura: No effusion. No pneumothorax. Cardiomediastinal contours: Cardiomegaly. Atherosclerotic vascular calcifications of the thoracic aor ta are noted. Bones: No acute osseous abnormality. IMPRESSION: No acute cardiopulmonary disease.
[2024-09-28 13:00] VITALS: PULSE 107; RESP 13; O2SAT 97
[2024-09-28] MEDS: MORPHINE SULFATE 4 MG/ML SYR/VIAL IV ONE (13:00)
[2024-09-28 13:31] LABS: Basophils # (auto) 0.1 10 ^3/uL (0-0.2); Basophils % (auto) 0.8 % (0.0-2.0); Eosinophils # (auto) 0.2 10 ^3/uL (0-0.8); Eosinophils % (auto) 1.4 % (0.0-7.0); Hematocrit 39.1 % (41.0-53.0); Hemoglobin 13.2 g/dL (13.5-17.5); Lymphocytes # (auto) 2.3 10 ^3/uL (0.4-5.4); Lymphocytes % (auto) 20.6 % (10.0-50.0); Mean Corpuscular Hemoglobin 30.3 pg (28.0-32.0); Mean Corpuscular Hgb Conc. 33.8 g/dL (32.0-36.0); Mean Corpuscular Volume 89.4 fL (80.0-100.0); Monocytes # (auto) 0.7 10 ^3/uL (0-1.3); Monocytes % (auto) 6.7 % (0.0-12.0); Neutrophils # (auto) 7.8 10 ^3/uL (1.6-8.6); Neutrophils % (auto) 70.5 % (37.0-80.0); Platelet Count (auto) 253 10^3/uL (140-450); Red Blood Cells 4.37 10^6/uL (4.5-5.90); Red Cell Distribution Width 13.8 % (11.8-14.3); White Blood Cell 11.1 10^3/uL (4.4-10.8)
[2024-09-28 13:45] LABS: Potassium 4.2 mmol/L (3.5-5.1); Sodium 139 mmol/L (136-145)
[2024-09-28 13:46] LABS: Anion Gap 9 (5-15); Calcium 8.8 mg/dL (8.7-10.4); Carbon Dioxide 21 mmol/L (20-31); Chloride 109 mmol/L (98-107)
[2024-09-28 13:51] LABS: BUN/Creatinine Ratio 11.4 (10.0-20.0); Blood Urea Nitrogen 23 mg/dL (9-23)
[2024-09-28 13:59] LABS: Glucose 409 mg/dL (74-106)
[2024-09-28] MEDS: InsuLIN REG 1unit/0.01ml Soln (100units/ml) IV ONE (14:00)
[2024-09-28] MEDS: ONDANSETRON HCL 4 MG/2 ML VIAL IV ONE (16:40)
[2024-09-28] MEDS: MORPHINE SULFATE INJ 2 MG/ml SYRG IV ONE (16:44)
[2024-09-28 17:02] LABS: Urine Bacteria None Seen /hpf (None Seen)
[2024-09-28 17:08] LABS: Urine Blood Negative /uL (Negative); Urine Clarity Clear (Clear); Urine Color Light-Yellow (Yellow); Urine Hyaline Cast MOD /lpf (0 - 2); Urine Mucus FEW (None Seen); Urine Protein, UAD TRACE (Negative); Urine Specific Gravity 1.017 (1.001-1.035); Urine Squamous Epithelial Cell FEW /hpf (<5); Urine Urobilinogen Normal (Negative); Urine WBC 2 /HPF (0-3)
[2024-09-28] MEDS ORDERED: ALBUTEROL SULF 2.5 MG/0.5ML(0.5%) NEB SOLN NEB PRN (17:45)
[2024-09-28] MEDS ORDERED: DEXTROSE (50%) 50ML SYRG IV PRN (17:45)
[2024-09-28] MEDS ORDERED: ONDANSETRON HCL 4 MG/2 ML VIAL IV PRN (17:45)
[2024-09-28] MEDS ORDERED: IPRATROPIUM BROM 0.5 MG/2.5ML INH SOL NEB PRN (17:45)
[2024-09-28] MEDS ORDERED: NITROGLYCERIN 0.4 MG SL TAB SL PRN (17:45)
[2024-09-28] MEDS ORDERED: PATIENTS OWN MEDICATION (Atorvastatin Calcium (Lipitor) 1 TAB) PO SCH (18:00)
[2024-09-28 18:07] VITALS: O2SAT 96
--- NOTE | 2024-09-28 18:19 | DVHINCON2 ---
Date of service: Sep 28, 2024 History of Present Illness HPI In his a 69-year-old gentleman who presented to the hospital with few days of shortness of breaths/palpitation and chest discomfort. He mentions that few days ago he was given different kind of marijuana and is concerned if it was laced with any other substance. Cardiology was involved for cardiac aspects of care. Patient is known to our practice from before and outside. Reportedly, in emergency room they were concerned about SVT and the patient was given adenosine (no lasting result). Later, the patient was started on IV amiodarone and at the time of evaluation the patient has converted back to sinus rhythm. There is concern about patient's compliance with medications. Home Meds Active Scripts Ondansetron (Zofran) 4 Mg Tab, 4 MG PO Q8HPRN PRN, #15 MG Prov:GRACE ARORA MD 10/16/21 Amoxicillin & Pot Clavulanate (Amoxicillin/Potassium Cla) 875 Mg Tab, 1 TAB PO BID, #20 TAB Prov:GRACE ARORA MD 10/16/21 Reported Medications Hydrocodone-Acetaminophen (Hydrocodone Bitartrate/AC 10-325 mg) 1 Tab Tab, 1 TAB PO Q8HP, TAB 10/19/21 Amiodarone Hcl (Amiodarone Hcl) 200 Mg Tab, 200 MG PO Q12HR for 30 Days 10/19/21 Atorvastatin Calcium (Lipitor) 20 Mg Tab, 1 TAB PO DAILY, #90 TAB 1 Refill 10/19/21 Atorvastatin Calcium (Lipitor) 40 Mg Tab, 1 TAB PO QPM, #90 TAB 1 Refill 10/19/21 Carvedilol (Carvedilol) 25 Mg Tab, 25 MG PO Q12HR for 30 Days, MG 10/19/21 Furosemide (Furosemide) 40 Mg Tab, 40 MG PO DAILY for 30 Days 10/19/21 Lisinopril (Lisinopril) 40 Mg Tab, 40 MG PO DAILY for 30 Days, MG 10/19/21 Diltiazem Hcl (Diltiazem Hcl) 30 Mg Tab, PO Q8HR for 30 Days, MG 10/19/21 Diltiazem Hcl (Diltiazem Hcl) 30 Mg Tab, 30 MG PO Q8HR for 30 Days, MG 10/19/21 Pantoprazole Sodium Sesquihydr (Pantoprazole Sodium) 40 Mg Tab, 40 MG PO DAILY, TAB 10/19/21 Glipizide (Glipizide) 5 Mg Tab, 5 MG PO DAILY for 30 Days, MG 10/19/21 Apixaban Base (ELIQUIS) 5 Mg Tab, 5 MG PO BID, TAB 10/19/21 Past Medical History Others Past medical history includes diabetes mellitus, hypertension, hyperlipidemia, morbid obesity, paroxysmal AFib, status post previous atrial fibrillation ablation, heart failure, history of systolic heart failure, later improved in systolic function, HFimpEF, COPD, CKD and diverticulosis. Family History: No pertinent Hx Patient Family History: Cardiovascular disease G8 MOTHER G8 FATHER Hypertension G8 MOTHER G8 FATHER Smoker: Quit Alocohol: Occassional Drugs: Marijuana Review of Systems Constitutional: Malaise Ears, Nose, & Throat: No symptom reported Eyes: No symptom reported Pulmonary/Respiratory: Dyspnea, Pleuritic Chest Pain Cardiovascular: Chest Pain, Palpitations All Other Systems 14 point review of system was performed. Relevant findings as per above and as per HPI. Otherwise negative H&P Exam Vital Signs Vital Signs Date Time Temp Pulse Resp B/P (MAP) Pulse Ox O2 Delivery O2 Flow Rate FiO2 09/28/24 16:44 77 13 101/66 09/28/24 15:00 96 09/28/24 13:00 Nasal Cannula* 3 32 09/28/24 13:00 98.2 98.2 General Appeara: Well developed, Mild distress Head Exam: Normal inspection Eye Exam: bilateral eye PERRL Mouth: Normal Inspection Pulmonary/Respiratory: Rhonci Cardiovascular/Chest: Edema, Regular rate, Systolic murmur Peripheral Pulses: 2+ carotid (R), 2+ carotid (L), 2+ femoral (R), 2+ femoral (L), 2+ dorsalis pedis (R), 2+ dorsalis pedis (L), 2+ Radial (R), 2+ Radial (L) Abdominal Exam: Normal bowel sounds, Soft, No tenderness Neuro/Mental St: Alert, Oriented, Depressed affect Eye contact/ Speech: Cooperative Labs/Xrays Labs Test 09/28/24 17:50 09/28/24 16:49 09/28/24 15:15 09/28/24 12:44 Range/Units POC Glucose 237 H 70-106 mg/dl Urine Color Light-yellow Yellow Urine Clarity Clear Clear Urine pH 5.0 5.0-9.0 Urine Specific [place] 1.017 1.001-1.035 Urine Protein Trace H Negative Urine Ketones Negative Negative Urine Blood Negative Negative /uL Urine Nitrite Negative Negative Urine Bilirubin Negative Negative Urine Urobilinogen Normal Negative mg/dL Urine Leukocyte Esterase Negative Negative /uL Urine RBC 1 0 - 3 /hpf Urine Microscopic WBC 2 0-3 /HPF Urine Squamous Epithelial Cells Few <5 /hpf Urine Bacteria None seen None Seen /hpf Urine Hyaline Casts Mod 0 - 2 /lpf Urine Mucus Few None Seen Urine Glucose 3+ H Normal mg/dL White Blood Count 11.1 H 4.4-10.8 10^3/uL Red Blood Count 4.37 L 4.5-5.90 10^6/uL Hemoglobin 13.2 L 13.5-17.5 g/dL Hematocrit 39.1 L 41.0-53.0 % Mean Corpuscular Volume 89.4 80.0-100.0 fL Mean Corpuscular Hemoglobin 30.3 28.0-32.0 pg Mean Corpuscular Hemoglobin Concent 33.8 32.0-36.0 g/dL Red Cell Distribution Width 13.8 11.8-14.3 % Platelet Count 253 140-450 10^3/uL Mean Platelet Volume 9.5 6.9-10.8 fL Neutrophils (%) (Auto) 70.5 37.0-80.0 % Lymphocytes (%) (Auto) 20.6 10.0-50.0 % Monocytes (%) (Auto) 6.7 0.0-12.0 % Eosinophils (%) (Auto) 1.4 0.0-7.0 % Basophils (%) (Auto) 0.8 0.0-2.0 % Neutrophils # (Auto) 7.8 1.6-8.6 10 ^3/uL Lymphocytes # (Auto) 2.3 0.4-5.4 10 ^3/uL Monocytes # (Auto) 0.7 0-1.3 10 ^3/uL Eosinophils # (Auto) 0.2 0-0.8 10 ^3/uL Basophils # (Auto) 0.1 0-0.2 10 ^3/uL Nucleated Red Blood Cells 0.0 % D-Dimer, Quantitative 0.61 H 0.0-0.49 mg/L FEU Sodium Level 139 136-145 mmol/L Potassium Level 4.2 3.5-5.1 mmol/L Chloride Level 109 H 98-107 mmol/L Carbon Dioxide Level 21 20-31 mmol/L Anion Gap 9 5-15 Blood Urea Nitrogen 23 9-23 mg/dL Creatinine 2.02 H 0.700-1.30 mg/dL Glomerular Filtration Rate Calc 35 >90 mL/min BUN/Creatinine Ratio 11.4 10.0-20.0 Serum Glucose 409 *H 74-106 mg/dL Calcium Level 8.8 8.7-10.4 mg/dL B-Type Natriuretic Peptide 259.00 0-100 pg/mL Assessment/Plan Plan In his a 69-year-old gentleman who presented to the hospital with few days of shortness of breaths/palpitation and chest discomfort. He mentions that few days ago he was given different kind of marijuana and is concerned if it was laced with any other substance. Cardiology was involved for cardiac aspects of care. Patient is known to our practice from before and outside. Reportedly, in emergency room they were concerned about SVT and the patient was given adenosine (no lasting result). Later, the patient was started on IV amiodarone and at the time of evaluation the patient has converted back to sinus rhythm. There is c oncern about patient's compliance with medications. Obese gentleman, not in acute distress. Sitting in bed. Not using accessory muscles of breathing. Mucosa is pink and wet. No carotid bruit. No goiter. At the time of evaluation, lungs are clear to auscultation. Cardiac: Regular, no thrill. Systolic murmur 3/6 in apex is heard. Abdomen is soft. Is obese. Bowel sound is positive. There is no gross mass. Extremities reveal 2+ edema bilaterally. Dorsalis pedis is 2+ bilateral Past medical history includes diabetes mellitus, hypertension, hyperlipidemia, morbid obesity, paroxysmal AFib, status post previous atrial fibrillation ablation, heart failure, history of systolic heart failure, later improved in systolic function, HFimpEF, COPD, CKD and diverticulosis. Echocardiogram of October 19, 2021 had reported concentric left ventricular hypertrophy, ejection fraction of 25-30%, biatrial enlargement, decreased right ventricular systolic function, aortic root enlargement, mild mitral annular calcification, mild aortic sclerosis, mild MR/TR and right ventricular systolic pressure of 21 mm Hg. Echocardiogram of February 27 2023 (performed in the office) reported ejection fraction of 50-55%, moderate concentric left ventricular hypertrophy, mild biatrial enlargement, moderate MR, mild mitral annual calcification/TR/PI and right ventricular systolic pressure of 35 mm Hg. Echocardiogram of July 2024 (performed in the office) had revealed preserved ejection fraction, mild valvular disease and concentric left ventricular hypertrophy Left heart catheterization of 2018 had revealed no significant coronary artery disease and ejection fraction of 60% WBC: 11.1 Hemoglobin: 13.2 D-dimer: 0.61 Creatinine: 2.02 Potassium: 4.2 BNP: 259.00 Troponin (high sensitive): 14 - 13 Chest x-ray revealed: IMPRESSION: No acute cardiopulmonary disease. Arrival EKG revealed atrial fibrillation with RVR Later EKG revealed sinus rhythm, first-degree AV block, IVCD and nonspecific ST- T changes Tele reveals sinus rhythm Patient is a 69-year-old gentleman who presented with generalized weakness/chest discomfort and shortness of breath. He was found to have atrial fibrillation with RVR. At that point there was concern about NSVT and adenosine was given unsuccessfully. Patient responded to IV amiodarone and converted back to sinus rhythm. Does have baseline history of paroxysmal AFib. Has had atrial fibrillation ablation before. Is noncompliant with medications. Does use marijuana and may have used other substance? Serial high sensitive troponin has been negative and presentation is not considered acute coronary syndrome. Does have history of systolic heart failure which later improved (have impaired if) Atrial fibrillation with RVR Paroxysmal AFib Leukocytosis Abnormal D-dimer Morbid obesity MARLENA on CKD Have impaired EF COPD Diabetes mellitus Morbid obesity Cardiac suggestion for management: Manage on telemetry Follow-up electrolytes and kidney function tests and correct abnormalities. Keep potassium above 4 and magnesium above 2 IV amiodarone You can add oral amiodarone (200 mg p.o. b.i.d. at this point) Request for echocardiogram Request for thyroid function tests Long-term continuation of full anticoagulation (on Eliquis as outpatient) is advised Please send urine for toxicology Venous Doppler of lower extremities V/Q scan Lifestyle and risk factor modification Further evaluation and management depends on the above and clinical course Thank you for consultation A total of 75 minutes was spent reviewing the patient record, examining the patient, making a diagnostic and therapeutic plan, discussing this plan with medical personnel, following up on diagnostic studies and following the patient for clinical stability excluding any and all procedures. At least 50% of this time was spent in direct, [id number] contact. Thank you for allowing me to participate in this patient's care. Further recommendations will depend on patient's clinical course. Please do not hesitate to contact me if you have any questions or concerns. This medical document was created using electronic medical record system with [employer] computerized dictation system. Although this document has been carefully reviewed, there may still be some phonetic and typographical errors. These areas are purely typographical due to the imperfection of the software programs, and do not reflect any compromise in the patient's medical care. Plan discussed with: Patient, Other (Nurse) DIPTI TOLEDO MD Sep 28, 2024 18:19
--- NOTE | 2024-09-28 19:02 | DVH ---
Procedure: US BiLat Lower DVT Study Date and Requested Time: 09/28/2024 06:17 PM History: eval for dvt Comparison: None Technique: Multiple high resolution ward-scale images with and without compression obtained of the bi lateral lower extremity veins, including the common femoral vein, deep femoral vein, proximal mid and distal superficial femoral vein, and popliteal vein. Additional limited images of the greater saphen ous vein also obtained. Augmentation performed as indicated. Color and spectral doppler flow images o btained as indicated. Findings: No visible intraluminal venous thrombus. No evidence of incompressibility or abnormal color or spectr al Doppler flow visualized in the bilateral lower extremity veins including, the common femoral vein, deep femoral vein, proximal mid and distal superficial femoral vein, and popliteal vein. Greater sap henous vein grossly unremarkable. Impression: No sonographic evidence of bilateral lower extremity deep venous thrombosis.
--- NOTE | 2024-09-28 19:44 | DVHHP2 ---
History of Present Illness Reason for Visit: Chest pain and shortness of the breath History of Present Illness 69-year-old male past medical history AFib CHF COPD diabetes GERDs hypertension DE cardiac ablation does see Dr. Gonzales as Cardiology chief complaint patient states he was sitting at home with his daughter he started developing chest pain and shortness of the breath when they did a heart rate they found his heart rate to be 100 and 80s he states the pain is midsternal and it feels like someone sitting on the chest. He does have history AFib with a it appears he was in AFib with RVR. According to the rn or lvn patient did smoke some marijuana but he do not know if it was laced and he has been noncompliant with his medication. Patient was provided adenosine in his later platelet stone amiodarone drip which converted his rhythm patient was given morphine insulin Zofran aspirin white count was 11.1 glucose was 409 creatinine was 2.02 troponin was negative BNP was 295 chest x-ray was unremarkable D-dimer was elevated at we will pursue V/Q scan since patient has MARLENA. We will admit and ask for Cardiology evaluation Past Medical History See HPI above Past Surgical History Cardiac ablation Family History Reviewed, non-contributory to the management of this case. Past Social History The patient lives at home, denies smoking, alcohol or illicit drugs abuse. Review of Systems Constitutional: No: Fever, Chills, Sweats, Weakness, Malaise, Other Eyes: No: Pain, Vision change, Conjunctivae inflammation, Eyelid inflammation, Other, Redness ENT: No: Ear pain, Ear discharge, Nose pain, Nose discharge, Nose congestion, Mouth pain, Mouth swelling, Throat pain, Throat swelling, Other Respiratory: Shortness of breath, SOB with excertion; No: Cough, Dry, Wheezing, Hemoptysis, Pleuritic Pain, Sputum, Wheezing, Other Cardiovascular: Chest Pain, Palpitations; No: Orthopnea, Paroxysmal Noc. Dyspnea, Edema, Lt Headedness, Other Gastrointestinal: No: Nausea, Vomiting, Abdominal Pain, Diarrhea, Constipation, Melena, Hematochezia, Other Genitourinary: No Dysuria, No Frequency, No Incontinence, No Hematuria, No Retention, No Other Musculoskeletal: No: other, neck pain, shoulder pain, arm pain, back pain, hand pain, leg pain, foot pain Skin: No: Rash, Lesions, Jaundice, Bruising, Other Neurological: Weakness; No: Numbness, Incoordination, Change in speech, Confusion, Seizures, Other Allergies: Coded Allergies: No Known Drug Allergy (Verified Allergy, Unknown, 12/01/19) Medications Current Medications Medications Dose Ordered Sig/Ted Route Start Time Stop Time Status Last Admin Dose Admin Amiodarone HCl 200 mg Q12HR PO 09/28/24 22:00 UNV Apixaban 5 mg BID PO 09/28/24 22:00 UNV Atorvastatin Calcium 20 mg HS PO 09/28/24 22:00 Patient Own Medication 1 tab QPM PO 09/28/24 18:00 UNV Patient Own Medication 25 mg Q12HR PO 09/28/24 22:00 UNV Patient Own Medication 30 mg Q8HR PO 09/28/24 22:00 UNV Patient Own Medication 40 mg DAILY PO 09/29/24 10:00 UNV Furosemide 40 mg BIDD IV 09/28/24 18:00 Pantoprazole Sodium 40 mg DAILY IV 09/29/24 10:00 UNV Aspirin 81 mg DAILY PO 09/29/24 10:00 Morphine Sulfate 2 mg Q30MP PRN IV 09/28/24 17:45 UNV Ondansetron HCl 4 mg Q4HP PRN IV 09/28/24 17:45 UNV Nitroglycerin 0.4 mg Q5MINP PRN SL 09/28/24 17:45 Diagnostic Test (Pha) 1 strip ACHS 09/28/24 22:00 Insulin Human Regular AC SC 09/29/24 07:00 Insulin Human Regular HS SC 09/28/24 22:00 Dextrose 50 ml UD PRN IV 09/28/24 17:45 Albuterol 2.5 mg Q4HPRN PRN NEB 09/28/24 17:45 Ipratropium [place] 0.5 mg Q4HPRN PRN NEB 09/28/24 17:45 Amiodarone HCl 200 mg Q12HR PO 09/28/24 22:00 Exam Vital Signs Vital Signs Date Time Temp Pulse Resp B/P (MAP) Pulse Ox O2 Delivery O2 Flow Rate FiO2 09/28/24 19:00 81 13 102/67 (79) 95 09/28/24 18:07 Nasal Cannula* 2 28 09/28/24 13:00 98.2 98.2 General Appearance: Alert, Oriented X3, Cooperative HEENT: Atraumatic, PERRLA, EOMI, Mucous membr. moist/pink Respiratory: Other (Diminished lung sounds throughout) Cardiovascular: Other (Irregular irregular) Abdominal: Normal bowel sounds, Soft, No tenderness, No hepatospenomegaly, No masses Extremities: No clubbing, No cyanosis, No edema, Normal pulses, No tenderness/swelling Skin: No rashes, No breakdown, No significant lesion Neuro: Other (Neuro nonfocal) Psych/Mental Status: Mental status NL, Mood NL Labs/Xrays Chest x-ray unremarkable I reviewed labs, imaging CT scan abdomen pelvis, EKG and all diagnostic studies on this patient from ED records and the medical chart Labs Test 09/28/24 17:50 09/28/24 16:49 09/28/24 15:15 09/28/24 12:44 Range/Units Magnesium Level 2.0 1.6-2.6 mg/dL Troponin I High Sensitivity 16 </=54 ng/L POC Glucose 237 H 70-106 mg/dl Urine Color Light-yellow Yellow Urine Clarity Clear Clear Urine pH 5.0 5.0-9.0 Urine Specific [place] 1.017 1.001-1.035 Urine Protein Trace H Negative Urine Ketones Negative Negative Urine Blood Negative Negative /uL Urine Nitrite Negative Negative Urine Bilirubin Negative Negative Urine Urobilinogen Normal Negative mg/dL Urine Leukocyte Esterase Negative Negative /uL Urine RBC 1 0 - 3 /hpf Urine Microscopic WBC 2 0-3 /HPF Urine Squamous Epithelial Cells Few <5 /hpf Urine Bacteria None seen None Seen /hpf Urine Hyaline Casts Mod 0 - 2 /lpf Urine Mucus Few None Seen Urine Glucose 3+ H Normal mg/dL White Blood Count 11.1 H 4.4-10.8 10^3/uL Red Blood Count 4.37 L 4.5-5.90 10^6/uL Hemoglobin 13.2 L 13.5-17.5 g/dL Hematocrit 39.1 L 41.0-53.0 % Mean Corpuscular Volume 89.4 80.0-100.0 fL Mean Corpuscular Hemoglobin 30.3 28.0-32.0 pg Mean Corpuscular Hemoglobin Concent 33.8 32.0-36.0 g/dL Red Cell Distribution Width 13.8 11.8-14.3 % Platelet Count 253 140-450 10^3/uL Mean Platelet Volume 9.5 6.9-10.8 fL Neutrophils (%) (Auto) 70.5 37.0-80.0 % Lymphocytes (%) (Auto) 20.6 10.0-50.0 % Monocytes (%) (Auto) 6.7 0.0-12.0 % Eosinophils (%) (Auto) 1.4 0.0-7.0 % Basophils (%) (Auto) 0.8 0.0-2.0 % Neutrophils # (Auto) 7.8 1.6-8.6 10 ^3/uL Lymphocytes # (Auto) 2.3 0.4-5.4 10 ^3/uL Monocytes # (Auto) 0.7 0-1.3 10 ^3/uL Eosinophils # (Auto) 0.2 0-0.8 10 ^3/uL Basophils # (Auto) 0.1 0-0.2 10 ^3/uL Nucleated Red Blood Cells 0.0 % D-Dimer, Quantitative 0.61 H 0.0-0.49 mg/L FEU Sodium Level 139 136-145 mmol/L Potassium Level 4.2 3.5-5.1 mmol/L Chloride Level 109 H 98-107 mmol/L Carbon Dioxide Level 21 20-31 mmol/L Anion Gap 9 5-15 Blood Urea Nitrogen 23 9-23 mg/dL Creatinine 2.02 H 0.700-1.30 mg/dL Glomerular Filtration Rate Calc 35 >90 mL/min BUN/Creatinine Ratio 11.4 10.0-20.0 Serum Glucose 409 *H 74-106 mg/dL Calcium Level 8.8 8.7-10.4 mg/dL B-Type Natriuretic Peptide 259.00 0-100 pg/mL Assessment/Plan Assessment/Plan acute afib no rvr pt was provided adenisone ordered ami drip which converted rhythm ordered home dose of ami ordered home dose of eliquis ordered tsh, mag, phos, fu results ordered uds fu results acute chest pain r/o nstemi ekg no stemi trop negative ordered cards consult dr gonzales fu results ordered asa and atorvastin for now ordered echo fu results last echo completed 09/2021 acute elevation in ddimer rule out pe will do vq scan in setting of marlena ordered home dose of eliquis acute dyspnea likely copd but will need to rule out PE ordered vq scan to eval for pe o2 prn to keep sats >92% ordered albuterol/atrovent prn sob chronic problems chf cont lasix dm ISS gerds protonix htn mi cardiac ablation fen/ppx diet hl protonix eliquis plan admit to [facility] since no ami drip Plan discussed with: Patient My Orders Orders - LYNDON DON DNP Procedure Category Date Status Time Apixaban (Eliquis) PHA 09/28/24 Logged 22:00 (Nf) Atorvastatin PHA 09/28/24 Logged Calcium (Lipitor) 18:00 (Nf) Carvedilol PHA 09/28/24 Logged 22:00 (Nf) Diltiazem Hcl PHA 09/28/24 Logged 22:00 (Nf) Lisinopril PHA 09/29/24 Logged 10:00 Furosemide Injection PHA 09/28/24 In Process (Lasix Injection) 18:00 Pantoprazole PHA 09/29/24 Logged (Protonix) 10:00 Code Status CODE 09/28/24 Transmitted 17:41 Vital Signs ELEUTERIO 09/28/24 In Process 17:41 Real Estate Closer ELEUTERIO 09/28/24 In Process 17:41 May Elevate Hob ____ ELEUTERIO 09/28/24 In Process Degrees 17:41 Cardiac DIET 09/28/24 Transmitted Diet-2gna,Lofat,Lochol Dinner Aspirin Tablet PHA 09/29/24 In Process 10:00 Morphine Sulfate PHA 09/28/24 Logged Injection 17:45 Complete Blood Count LAB 09/29/24 Verified 04:00 Comprehensive LAB 09/29/24 Verified Metabolic Panel 04:00 Echo 2d Mode Cardiac US 09/28/24 Logged DOP 17:41 Ondansetron Hcl PHA 09/28/24 Logged (Zofran) 17:45 Electrocardigram EKG 09/28/24 Logged 17:41 Cardiac ELEUTERIO 09/28/24 In Process Rehabilitation - Outpa Nitroglycerin PHA 09/28/24 In Process Sublingual (Ntrostat 17:45 Stat Ekg For Chest ELEUTERIO 09/28/24 In Process Pain 17:41 Notify Of Changes ELEUTERIO 09/28/24 In Process From Base 17:41 Core Feeder For ELEUTERIO 09/28/24 In Process 24 Hours 17:41 Emergency Dysrhythmia ELEUTERIO 09/28/24 In Process Protocol 17:41 Rhythm Strips Once ELEUTERIO 09/28/24 In Process Every Shift 17:41 Oxygen By Nasal RT 09/28/24 Transmitted Cannula 17:41 Glucose Blood PHA 09/28/24 In Process (Accu-Chek Comfort 22:00 Insulin R (Human) PHA 09/29/24 In Process (Insulin R) 07:00 Insulin R (Human) PHA 09/28/24 In Process (Insulin R) 22:00 Dextrose 50% Syringe PHA 09/28/24 In Process 17:45 Albuterol Medneb PHA 09/28/24 In Process (Ventolin Medneb) 17:45 Ipratropium Medneb PHA 09/28/24 In Process (Atrovent Medneb) 17:45 Cont Med Neb Intial Tx RT 09/28/24 Logged 17:41 Admit ADMIT 09/28/24 Transmitted 18:04 Amiodarone Tablet PHA 09/28/24 In Process (Cordarone Tablet) 22:00 Bilat Lower Dvt US 09/28/24 Resulted 18:04 Nm Vq Scan NM 09/28/24 Logged 18:04 Atorvastatin (Lipitor) PHA 09/28/24 In Process 22:00 Date of Service: Sep 28, 2024 Billing Provider: LYNDON DON DNP Common Visit Codes: [id number] INP/OBS CARE (HIGH), [id number] CARE 30- 74 MIN (Total critical care time: Approximately 45 minutes This critical care time included obtaining a history; examining the patient; pulse oximetry; ordering and review of studies; arranging urgent treatment with development of a management plan; evaluation of patient's response to treatment; frequent reassessment; and, discussions with other providers.) LYNDON DON DNP Sep 28, 2024 19:44
[2024-09-28 20:16] VITALS: BP 110/72; PULSE 78; RESP 17; TEMP 98.4; O2SAT 96
[2024-09-28] MEDS: PANTOPRAZOLE 40 MG/10 ML VIAL INJ IV ONE (20:31)
[2024-09-28] MEDS: FUROSEMIDE 40 MG/4 ML VIAL IV SCH (20:32)
[2024-09-28 21:03] LABS: Amphetamine Screen, Urine Neg (NEGATIVE); Barbiturate Scree,Urine Neg (NEGATIVE); Benzodiazephine Screen, Urine Neg (NEGATIVE); Cannabinoid Screen, Urine Pos (NEGATIVE); Cocaine Screen, Urine Neg (NEGATIVE); Opiate Scree,Urine Pos (NEGATIVE); Phencyclidine Screen, Urine Neg (NEGATIVE)
[2024-09-28 21:26] VITALS: PULSE 89; RESP 13; O2SAT 96
[2024-09-28 21:54] VITALS: BP 117/73; PULSE 62; RESP 18; TEMP 97.7; O2SAT 97
[2024-09-28] MEDS ORDERED: AMIODARONE HCL 200 MG TAB PO SCH ×2 (22:00)
[2024-09-28] MEDS ORDERED: AML5T PO (23:02)
[2024-09-28] MEDS: APIXABAN 5 MG TAB PO SCH (23:07)
[2024-09-28] MEDS: ATORVASTATIN 20 MG TAB PO SCH (23:07)
[2024-09-28] MEDS: AMIODARONE HCL 200 MG TAB PO SCH (23:08)
[2024-09-28] MEDS: ACCU-CHEK COMFORT CURVE STRIP VI SCH (23:08)
[2024-09-28] MEDS: InsuLIN REG 1unit/0.01ml Soln (100units/ml) SC SCH (23:10)
[2024-09-29] VITALS (11 sets, daily range): BP systolic 99–137; BP diastolic 60–84; PULSE 61–115; RESP 17–20; TEMP 97.4–98.5; O2SAT 94–100
[2024-09-29] MEDS: MORPHINE SULFATE INJ 2 MG/ml SYRG IV ONE (00:48)
[2024-09-29] MEDS: InsuLIN REG 1unit/0.01ml Soln (100units/ml) SC SCH (06:15)
--- NOTE | 2024-09-29 06:41 | DVHPN2 ---
Progress Note - Dictate Date Seen: Sep 29, 2024 Medical Necessity Reason Pt with a Central, PICC or Fol: No vital signs Vital Sign Date Time Temp Pulse Resp B/P (MAP) Pulse Ox O2 Delivery O2 Flow Rate FiO2 09/29/24 06:05 137/84 09/29/24 05:00 98.1 65 17 96 98.1 09/28/24 23:03 Nasal Cannula* 3 32 Total Intake and Output 09/28/24 09/28/24 09/29/24 15:00 23:00 07:00 Intake Total 0 ml 700 ml Balance 0 ml 700 ml medications Current Medications Medications Dose Ordered Sig/Ted Route Start Time Stop Time Status Last Admin Dose Admin Amiodarone HCl 200 mg Q12HR PO 09/28/24 22:00 UNV Apixaban 5 mg BID PO 09/28/24 22:00 09/28/24 23:07 5 MG Atorvastatin Calcium 20 mg HS PO 09/28/24 22:00 09/28/24 23:07 20 MG Carvedilol 25 mg Q12HR PO 09/29/24 10:00 Diltiazem HCl 30 mg Q8HR PO 09/29/24 22:00 Lisinopril 40 mg DAILY PO 09/29/24 10:00 Furosemide 40 mg BIDD IV 09/28/24 18:00 09/29/24 06:05 40 MG Pantoprazole Sodium 40 mg DAILY IV 09/29/24 10:00 Aspirin 81 mg DAILY PO 09/29/24 10:00 Morphine Sulfate 2 mg Q30MP PRN IV 09/28/24 17:45 Ondansetron HCl 4 mg Q4HP PRN IV 09/28/24 17:45 Nitroglycerin 0.4 mg Q5MINP PRN SL 09/28/24 17:45 Diagnostic Test (Pha) 1 strip ACHS 09/28/24 22:00 09/29/24 06:10 1 STRIP Insulin Human Regular AC SC 09/29/24 07:00 09/29/24 06:15 4 UNITS Insulin Human Regular HS SC 09/28/24 22:00 09/28/24 23:10 2 UNITS Dextrose 50 ml UD PRN IV 09/28/24 17:45 Albuterol 2.5 mg Q4HPRN PRN NEB 09/28/24 17:45 Ipratropium Harriet 0.5 mg Q4HPRN PRN NEB 09/28/24 17:45 Amiodarone HCl 200 mg Q12HR PO 09/28/24 22:00 09/28/24 23:08 200 MG laboratory and microbiology Laboratory Tests 09/28/24 12:44 Test 09/28/24 12:44 Range/Units Serum Glucose 409 *H 74-106 mg/dL Assessment/Plan Patient is a 69-year-old gentleman who presented to the hospital with few days of shortness of breaths/palpitation and chest discomfort. He mentions that few days ago he was given different kind of marijuana and is concerned if it was laced with any other substance. Cardiology was involved for cardiac aspects of care. Patient is known to our practice from before and outside. Reportedly, in emergency room they were concerned about SVT and the patient was given adenosine (no lasting result). Later, the patient was started on IV amiodarone and at the time of evaluation the patient has converted back to sinus rhythm. There is concern about patient's compliance with medications. Obese gentleman, not in acute distress. Sitting in bed. Not using accessory muscles of breathing. Mucosa is pink and wet. No carotid bruit. No goiter. At the time of evaluation, lungs are clear to auscultation. Cardiac: Regular, no thrill. Systolic murmur 3/6 in apex is heard. Abdomen is soft. Is obese. Bowel sound is positive. There is no gross mass. Extremities reveal 2+ edema bilaterally. Dorsalis pedis is 2+ bilateral Past medical history includes diabetes mellitus, hypertension, hyperlipidemia, morbid obesity, paroxysmal AFib, status post previous atrial fibrillation ablation, heart failure, history of systolic heart failure, later improved in systolic function, HFimpEF, COPD, CKD and diverticulosis. Echocardiogram of October 19, 2021 had reported concentric left ventricular hypertrophy, ejection fraction of 25-30%, biatrial enlargement, decreased right ventricular systolic function, aortic root enlargement, mild mitral annular calcification, mild aortic sclerosis, mild MR/TR and right ventricular systolic pressure of 21 mm Hg. Echocardiogram of February 27 2023 (performed in the office) reported ejection fraction of 50-55%, moderate concentric left ventricular hypertrophy, mild biatrial enlargement, moderate MR, mild mitral annual calcification/TR/PI and right ventricular systolic pressure of 35 mm Hg. Echocardiogram of July 2024 (performed in the office) had revealed preserved ejection fraction, mild valvular disease and concentric left ventricular hypertrophy Left heart catheterization of 2018 had revealed no significant coronary artery disease and ejection fraction of 60% WBC: 11.1 Hemoglobin: 13.2 D-dimer: 0.61 Creatinine: 2.02 Potassium: 4.2 BNP: 259.00 Troponin (high sensitive): 14 - 13 - 16 TSH: 3.40 Urine tox was positive for Cannabinoids and Opiates Chest x-ray revealed: IMPRESSION: No acute cardiopulmonary disease. Venous duplex of lower ext: Impression: No sonographic evidence of bilateral lower extremity deep venous thrombosis. Arrival EKG revealed atrial fibrillation with RVR Later EKG revealed sinus rhythm, first-degree AV block, IVCD and nonspecific ST- T changes Tele reveals PAF Patient is a 69-year-old gentleman who presented with generalized weakness/chest discomfort and shortness of breath. He was found to have atrial fibrillation with RVR. At that point there was concern about NSVT and adenosine was given unsuccessfully. Patient responded to IV amiodarone and converted back to sinus rhythm. Does have baseline history of paroxysmal AFib. Has had atrial fibrillation ablation before. Is noncompliant with medications. Does use marijuana and may have used other substance? Serial high sensitive troponin has been negative and presentation is not considered acute coronary syndrome. Does have history of systolic heart failure which later improved (have impaired if) Atrial fibrillation with RVR Paroxysmal AFib Leukocytosis Abnormal D-dimer Morbid obesity MARLENA on CKD Have impaired EF COPD Diabetes mellitus Morbid obesity Cardiac suggestion for management: Manage on telemetry Follow-up electrolytes and kidney function tests and correct abnormalities. Keep potassium above 4 and magnesium above 2 IV Amiodarone with Oral amiodarone (200 mg p.o. b.i.d. at this point) for now Awaiting Echocardiogram Long-term continuation of full anticoagulation (on Eliquis) V/Q scan Lifestyle and risk factor modification Further evaluation and management depends on the above and clinical course A total of 55 minutes was spent reviewing the patient record, examining the patient, making a diagnostic and therapeutic plan, discussing this plan with medical personnel, following up on diagnostic studies and following the patient for clinical stability excluding any and all procedures. At least 50% of this time was spent in direct, [id number] contact. Thank you for allowing me to participate in this patient's care. Further recommendations will depend on patient's clinical course. Please do not hesitate to contact me if you have any questions or concerns. This medical document was created using electronic medical record system with Leixir computerized dictation system. Although this document has been carefully reviewed, there may still be some phonetic and typographical errors. These areas are purely typographical due to the imperfection of the software programs, and do not reflect any compromise in the patient's medical care. Plan discussed with: Patient, Other (nurse) DIPTI TOLEDO MD Sep 29, 2024 06:41
--- NOTE | 2024-09-29 06:46 | ECG ---
[facility] Test Date: 2024-09-28 Test Time: 12:17:58 Pat Name: ROBERT FLANNERY Department: ED Room: [facility]0T B Gender: M Senior Medical Technologist: 03 : 1955 Requested By: THOR STONER Order Number: [id number] Reading MD: Oskar Yadav Measurements Intervals [place] Rate: 175 P: 0 NE: 65 QRS: -33 QRSD: 121 T: 91 QT: 312 QTc: 533 Interpretive Statements Wide-QRS tachycardia Left bundle branch block Baseline wander in lead(s) II,V1,V3 Electronically Signed On 09-30-2024 20:47:06 PDT by Oskar Yadav Please click the below link to view image of tracing.
--- NOTE | 2024-09-29 06:47 | ECG ---
[facility] Test Date: 2024-09-28 Test Time: 13:17:16 Pat Name: ROBERT FLANNERY Department: ED Room: [facility]0T B Gender: M Hotel Operations Manager: tobias : 1955 Requested By: THOR STONER Order Number: [id number] Reading MD: Oskar Yadav Measurements Intervals [place] Rate: 124 P: 239 [place]: 110 QRS: -26 QRSD: 112 T: 75 QT: 360 QTc: 517 Interpretive Statements Sinus tachycardia with irregular rate Borderline intraventricular conduction delay Low voltage, precordial leads Abnormal R-wave progression, early transition Minimal ST depression, lateral leads Prolonged QT interval Electronically Signed On 09-30-2024 20:47:46 PDT by Oskar Yadav Please click the below link to view image of tracing.
--- NOTE | 2024-09-29 06:48 | ECG ---
[facility] Test Date: 2024-09-28 Test Time: 15:17:37 Pat Name: ROBERT FLANNERY Department: ED Room: [facility]0T B Gender: M Litigation Counsel: RENETTA : 1955 Requested By: THOR STONER Order Number: [id number] Reading MD: Oskar Yadav Measurements Intervals [place] Rate: 79 P: 94 [place]: 282 QRS: -19 QRSD: 118 T: 28 QT: 413 QTc: 474 Interpretive Statements Sinus rhythm Prolonged [place] interval Nonspecific intraventricular conduction delay Low voltage, precordial leads Electronically Signed On 09-30-2024 20:48:43 PDT by Oskar Yadav Please click the below link to view image of tracing.
[2024-09-29 07:58] LABS: Basophils # (auto) 0.1 10 ^3/uL (0-0.2); Eosinophils # (auto) 0.3 10 ^3/uL (0-0.8); Eosinophils % (auto) 3.2 % (0.0-7.0); Hematocrit 36.2 % (41.0-53.0); Hemoglobin 12.4 g/dL (13.5-17.5); Lymphocytes # (auto) 1.5 10 ^3/uL (0.4-5.4); Lymphocytes % (auto) 17.4 % (10.0-50.0); Mean Corpuscular Hemoglobin 30.2 pg (28.0-32.0); Mean Corpuscular Hgb Conc. 34.1 g/dL (32.0-36.0); Mean Corpuscular Volume 88.4 fL (80.0-100.0); Monocytes # (auto) 0.7 10 ^3/uL (0-1.3); Monocytes % (auto) 7.5 % (0.0-12.0); Neutrophils # (auto) 6.3 10 ^3/uL (1.6-8.6); Neutrophils % (auto) 70.9 % (37.0-80.0); Nucleated Red Blood Cells % 0.1 %; Platelet Count (auto) 199 10^3/uL (140-450); Red Cell Distribution Width 13.6 % (11.8-14.3); White Blood Cell 8.9 10^3/uL (4.4-10.8)
--- NOTE | 2024-09-29 08:10 | ECG ---
[facility] Test Date: 2024-09-29 Test Time: 00:04:20 Pat Name: ROBERT FLANNERY Department: Room: [facility]0T B Gender: M Environmental Services Aide: MAGGIE : 1955 Requested By: LYNDON DON Order Number: [id number] Reading MD: Oskar Yadav Measurements Intervals [place] Rate: 80 P: 0 [place]: 177 QRS: -22 QRSD: 121 T: 135 QT: 411 QTc: 475 Interpretive Statements Sinus rhythm Supraventricular bigeminy Nonspecific intraventricular conduction delay Borderline repolarization abnormality Electronically Signed On 09-30-2024 20:26:32 PDT by Oskar Yadav Please click the below link to view image of tracing.
[2024-09-29 08:11] LABS: Alanine Aminotransferase 14 U/L (7-40); Alkaline Phosphatase 77 U/L (46-116); Anion Gap 9 (5-15); BUN/Creatinine Ratio 12.4 (10.0-20.0); Blood Urea Nitrogen 23 mg/dL (9-23); Calcium 8.8 mg/dL (8.7-10.4); Carbon Dioxide 25 mmol/L (20-31); Chloride 107 mmol/L (98-107); Potassium 3.9 mmol/L (3.5-5.1); Sodium 141 mmol/L (136-145)
[2024-09-29 08:12] LABS: Albumin 3.8 g/dL (3.2-4.8); Aspartate Aminotransferase 105 U/L (13-40); Bilirubin, Total 0.3 mg/dL (0.2-1.0); Glucose 174 mg/dL (74-106)
--- NOTE | 2024-09-29 08:32 | DVH ---
Date: 09/29/2024 07:36 AM Examination: XY KUB ABDOMEN SINGLE VIEW History: pain Comparison: None TECHNIQUE: Frontal views of the abdomen was obtained. FINDINGS: Comminuted inolving the inferior and superior right pubic ramus IMPRESSION: Comminuted inolving the inferior and superior right pubic ramus
[2024-09-29] MEDS: ASPirin 81 mg TAB PO SCH (09:10)
[2024-09-29] MEDS: AMIODARONE 360mg/200mL PREMIX 200 ML IV SCH (09:10)
[2024-09-29] MEDS: LISINOPRIL 20 MG TAB PO SCH (09:11)
[2024-09-29] MEDS: CARVEDILOL 12.5 MG TAB PO SCH (09:12)
[2024-09-29] MEDS: PANTOPRAZOLE 40 MG/10 ML VIAL INJ IV SCH (09:21)
--- NOTE | 2024-09-29 11:59 | DVHPN2 ---
Subjective The patient is seen and examined at bedside. Still have heart palpitation. Denied chest pain. Reviewed: Care Plan, H&P, Labs, Medications, Previous Orders, Radiology Changes from previous H/P or p: No Changes Eyes: No Pain, No Vision change, No Conjunctivae inflammation, No Eyelid inflammation, No Other, No Redness ENT: No Ear pain, No Ear discharge, No Nose pain, No Nose discharge, No Nose congestion, No Mouth pain, No Mouth swelling, No Throat pain, No Throat swelling, No Other Cardiovascular: Chest Pain, Palpitations; No Orthopnea, No Paroxysmal Noc. Dyspnea, No Edema, No Lt Headedness, No Other Respiratory: No Cough, No Dry; Shortness of breath, SOB with excertion; No Wheezing, No Hemoptysis, No Pleuritic Pain, No Sputum, No Other Gastrointestinal: No Nausea, No Vomiting, No Abdominal Pain, No Diarrhea, No Constipation, No Melena, No Hematochezia, No Other Genitourinary: No Dysuria, No Frequency, No Incontinence, No Hematuria, No Retention, No Other Musculoskeletal: No other, No neck pain, No shoulder pain, No arm pain, No back pain, No hand pain, No leg pain, No foot pain Skin: No Rash, No Lesions, No Jaundice, No Bruising, No Other Objective Vitals Vital Signs Date Time Temp Pulse Resp B/P (MAP) Pulse Ox O2 Delivery O2 Flow Rate FiO2 09/29/24 11:39 89 134/73 09/29/24 08:05 97.4 19 94 97.4 09/29/24 07:31 Nasal Cannula 2.0 09/29/24 07:31 28 Intake/Output Intake and Output 09/29/24 07:00 Intake Total 700 ml Balance 700 ml Intake Oral 700 ml # Voids 4 General Appearance: Alert, Oriented X3, Cooperative, No acute distress HEENT: Atraumatic, PERRLA, EOMI, Mucous membr. moist/pink Neck: Supple Lungs: Clear to auscultation, Normal air movement Cardiovascular: Regular rate, Normal S1, Normal S2, No murmurs, Gallops, Rubs Abdomen: Normal bowel sounds, Soft, No tenderness Neuro: Cranial nerves 3-12 NL Psych/Mental Status: Mental status NL Medications Current Medications Medications Dose Ordered Sig/Ted Route Start Time Stop Time Status Last Admin Dose Admin Amiodarone HCl 200 mg Q12HR PO 09/28/24 22:00 UNV Apixaban 5 mg BID PO 09/28/24 22:00 09/29/24 09:10 5 MG Atorvastatin Calcium 20 mg HS PO 09/28/24 22:00 09/28/24 23:07 20 MG Carvedilol 25 mg Q12HR PO 09/29/24 10:00 09/29/24 09:12 25 MG Diltiazem HCl 30 mg Q8HR PO 09/29/24 22:00 Lisinopril 40 mg DAILY PO 09/29/24 10:00 09/29/24 09:11 40 MG Furosemide 40 mg BIDD IV 09/28/24 18:00 09/29/24 06:05 40 MG Pantoprazole Sodium 40 mg DAILY IV 09/29/24 10:00 09/29/24 09:21 40 MG Aspirin 81 mg DAILY PO 09/29/24 10:00 09/29/24 09:10 81 MG Morphine Sulfate 2 mg Q30MP PRN IV 09/28/24 17:45 Ondansetron HCl 4 mg Q4HP PRN IV 09/28/24 17:45 Nitroglycerin 0.4 mg Q5MINP PRN SL 09/28/24 17:45 Diagnostic Test (Pha) 1 strip ACHS 09/28/24 22:00 09/29/24 06:10 1 STRIP Insulin Human Regular AC SC 09/29/24 07:00 09/29/24 06:15 4 UNITS Insulin Human Regular HS SC 09/28/24 22:00 09/28/24 23:10 2 UNITS Dextrose 50 ml UD PRN IV 09/28/24 17:45 Albuterol 2.5 mg Q4HPRN PRN NEB 09/28/24 17:45 Ipratropium [place] 0.5 mg Q4HPRN PRN NEB 09/28/24 17:45 Acetaminophen/ Hydrocodone Bitart 1 tab Q4HP PRN PO 09/29/24 11:30 Amiodarone HCl 200 mg Q12HR PO 09/29/24 22:00 Laboratory Results Laboratory Tests 09/29/24 06:17 Chemistry Test 09/28/24 12:44 09/28/24 17:50 09/29/24 06:17 Calcium Level 8.8 mg/dL (8.7-10.4) 8.8 mg/dL (8.7-10.4) Magnesium Level 2.0 mg/dL (1.6-2.6) 2.0 mg/dL (1.6-2.6) Albumin 3.8 g/dL (3.2-4.8) Total Protein 6.0 g/dL (5.7-8.2) Coagulation Test 09/28/24 12:44 D-Dimer, Quantitative 0.61 mg/L FEU (0.0-0.49) H Cardiac Markers Test 09/28/24 12:44 B-Type Natriuretic Peptide 259.00 pg/mL (0-100) LFT Test 09/29/24 06:17 Alanine Aminotransferase (ALT) 14 U/L (7-40) Alkaline Phosphatase 77 U/L (46-116) Aspartate Amino Transferase (AST) 105 U/L (13-40) H Total Bilirubin 0.3 mg/dL (0.2-1.0) HgA1c, TSH Test 09/28/24 17:50 Thyroid Stimulating Hormone (TSH) 3.40 uIU/mL (0.55-4.78) Urinalysis Test 09/28/24 15:15 Urine Color Light-yellow (Yellow) Urine Clarity Clear (Clear) Urine pH 5.0 (5.0-9.0) Urine Specific [place] 1.017 (1.001-1.035) Urine Protein Trace (Negative) H Urine Ketones Negative (Negative) Urine Blood Negative /uL (Negative) Urine Nitrite Negative (Negative) Urine Bilirubin Negative (Negative) Urine Urobilinogen Normal mg/dL (Negative) Urine Leukocyte Esterase Negative /uL (Negative) Urine RBC 1 /hpf (0 - 3) Urine Microscopic WBC 2 /HPF (0-3) Urine Squamous Epithelial Cells Few /hpf (<5) Urine Bacteria None seen /hpf (None Seen) Urine Hyaline Casts Mod /lpf (0 - 2) Urine Mucus Few (None Seen) Urine Glucose 3+ mg/dL (Normal) H Labs and/or images reviewed: Labs reviewed by me Assessment/Plan Assessment/Plan Acute afib no rvr Acute chest pain r/o nstemi Acute elevation in ddimer rule out pe Acute dyspnea likely copd but will need to rule out PE Congestive heart failure Diabetes type 2 GERD Hypertension History of HI Cardiac ablation Plan: Continuing current management. Continuing with IV amiodarone. Dr. Gonzalez roller skates assembler's had switch amiodarone to p.o. this afternoon. We will continuing to monitor heart rate. So far is AFib but heart rate controlled. Review CT scan of chest showed no pulmonary embolism. Continuing sliding scale insulin. Continuing hypertensive medication. This medical document was created using an electronic medical record system with zlien computerized dictation system. Although this document has been carefully reviewed, there may still be some phonetic and typographical errors. These areas are purely typographical due to imperfections of the software programs, and do not reflect any compromise in the patient's medical care. Plan discussed with: Patient My Orders Orders - ALIYAH ARGUETA MD Procedure Category Date Status Time Hydrocodone-Acet PHA 09/29/24 In Process 10/325mg Tab ([place] 11:30 Date of Service: Sep 29, 2024 Billing Provider: ALIYAH ARGUETA MD Common Visit Codes: [id number] INP/OBS CARE(HIGH) ALIYAH ARGUETA MD Sep 29, 2024 11:59
[2024-09-29] MEDS: AMIODARONE HCL 200 MG TAB PO ONE (12:16)
[2024-09-29] MEDS: HYDROcodone-ACET 10/325MG TAB PO PRN (12:16)
--- NOTE | 2024-09-29 14:45 | DVH ---
[facility] [address] [facility] [address] Ph: [phone] DIAGNOSTIC IMAGING Diagnostic Imaging Report : [id number] Signed PATIENT: ROBERT FLANNERY ACCT: [id number] UNIT: [id number] : 1955 LOC: [facility] AGE / SEX: 69 / M ADM STATUS: ADM IN SERVICE 03 ORDERING PHYSICIAN: LYNDON DON DNP PROCEDURE(s): VQ - NM VQ SCAN REASON: PULMONARY EMBOLISM ORDER NUMBER(s): [id number], ACCESSION NUMBER(s): [id number] EXAM: NM NM VQ SCAN HISTORY: PULMONARY EMBOLISM COMPARISON: None TECHNIQUE: 6.5 mCi of Tc99m MAA were utilized for the perfusion portion of the study. 4.3 mCi of Xenon 133 were utilized for the ventilation portion of the study. FINDINGS: Ventilation and perfusion images show homogeneous uptake of the radiotracer in both lungs without ventilation or perfusion defects. IMPRESSION: 1. Normal VQ scan. Low probability for pulmonary embolism. ATED BY: DAVE DOLL Jr., DO DICTATED DATE/TIME: 09/29/241441 SIGNED BY: DAVE DOLL Jr., DO SIGNED DATE/TIME: 09/29/241441 CC:
--- NOTE | 2024-09-29 17:16 | DVHSR ---
APPROVED REPORT EXAM: LIMITED Two-dimensional and M-mode echocardiogram with Doppler and color Doppler. Blood Pressure: 137/84 mmHg INDICATION Chest Pain RISK FACTORS Obesity: Height: 6' 3", Weight: 308 DIMENSIONS LVDd5.6 (3.8-5.7cm)LA (2D)4.1 (1.9-4.0cm)Aortic Root4.0 (2.0-3.7cm) LVDs3.8 (2.5-4.0cm)LA (MM) (1.9-4.0cm)Aortic Cusp Exc2.2 (1.5-2.0cm) EF (%) 60.0 (55-70%)Rt. Atrium4.8 (1.9-4.0cm)Asc. Aorta cm IVSd0.9 (0.7-1.1cm)RV (D) (1.8-2.4cm) PWd0.9 (0.7-1.1cm) Mitral Valve MitralMitral Stenosis E wave1.10m/sMV Mean GR.mmHg E/A ratio0.02D MVAcm2 Aortic Valve Aortic ValveAortic Stenosis V10.70m/Colleen Mean GR.4mmHg V21.30m/Colleen Peak GR.7mmHg LVOT Diameter2.6 (1.8-2.4cm)Doppler AVA2.86cm2 Pulmonic Valve V20.70m/s Tricuspid Valve TR Velocity2.30m/s [id number] Other Information Quality : Technically LimitedRhythm : Atrial Fibrillation Technically limited study due to body habitus. Conclusion Technically difficult study secondary to poor acoustic windows. Left ventricle: Mild concentric left ventricle hypertrophy was seen. LVEF was around 60%. There wa s no gross wall motion abnormality, but its presence can not be ruled out on the basis of this study. Right ventricle was normal-sized with normal systolic function. Mild biatrial enlargement was observ ed. Aortic valve was not well visualized. There was mild aortic insufficiency. There was no aortic sten osis. There was mild mitral/tricuspid regurgitation. Pulmonary valve was not well visualized. Right ventricular systolic pressure was assessed around 30 mm Hg (normal). There was no pericardial effusion. Aortic root was mildly dilated at 4.0 cm.
[2024-09-29] MEDS: NITROGLYCERIN 0.4 MG SL TAB SL PRN (18:50)
[2024-09-29] MEDS: MORPHINE SULFATE 4 MG/ML SYR/VIAL IV PRN (20:04)
[2024-09-29] MEDS: dilTIAZem HCL 60 MG TAB PO SCH (21:53)
[2024-09-29] MEDS: AMIODARONE HCL 200 MG TAB PO SCH (21:54)
[2024-09-30] VITALS (12 sets, daily range): BP systolic 91–117; BP diastolic 59–70; PULSE 68–103; RESP 18–20; TEMP 97.9–98.5; O2SAT 93–98
--- NOTE | 2024-09-30 07:16 | DVHPN2 ---
Progress Note - Dictate Date Seen: Sep 30, 2024 Medical Necessity Reason Pt with a Central, PICC or Fol: No vital signs Vital Sign Date Time Temp Pulse Resp B/P (MAP) Pulse Ox O2 Delivery O2 Flow Rate FiO2 09/30/24 06:00 115/59 09/30/24 06:00 84 09/30/24 05:00 98.2 18 94 98.2 09/29/24 20:00 Nasal Cannula* 3 32 Total Intake and Output 09/29/24 09/29/24 09/30/24 15:00 23:00 07:00 Intake Total 474 ml 500 ml 500 ml Output Total 650 ml 400 ml Balance 474 ml -150 ml 100 ml medications Current Medications Medications Dose Ordered Sig/Ted Route Start Time Stop Time Status Last Admin Dose Admin Amiodarone HCl 200 mg Q12HR PO 09/28/24 22:00 UNV Apixaban 5 mg BID PO 09/28/24 22:00 09/29/24 21:53 5 MG Atorvastatin Calcium 20 mg HS PO 09/28/24 22:00 09/29/24 21:53 20 MG Carvedilol 25 mg Q12HR PO 09/29/24 10:00 09/29/24 09:12 25 MG Diltiazem HCl 30 mg Q8HR PO 09/29/24 22:00 09/30/24 06:00 30 MG Lisinopril 40 mg DAILY PO 09/29/24 10:00 09/29/24 09:11 40 MG Furosemide 40 mg BIDD IV 09/28/24 18:00 09/30/24 06:00 40 MG Pantoprazole Sodium 40 mg DAILY IV 09/29/24 10:00 09/29/24 09:21 40 MG Aspirin 81 mg DAILY PO 09/29/24 10:00 09/29/24 09:10 81 MG Morphine Sulfate 2 mg Q30MP PRN IV 09/28/24 17:45 09/29/24 20:04 2 MG Ondansetron HCl 4 mg Q4HP PRN IV 09/28/24 17:45 Nitroglycerin 0.4 mg Q5MINP PRN SL 09/28/24 17:45 09/29/24 18:58 0.4 MG Diagnostic Test (Pha) 1 strip ACHS 09/28/24 22:00 09/30/24 06:00 1 STRIP Insulin Human Regular AC SC 09/29/24 07:00 09/30/24 06:37 2 UNITS Insulin Human Regular HS SC 09/28/24 22:00 09/29/24 22:00 3 UNITS Dextrose 50 ml UD PRN IV 09/28/24 17:45 Albuterol 2.5 mg Q4HPRN PRN NEB 09/28/24 17:45 Ipratropium Norco 0.5 mg Q4HPRN PRN NEB 09/28/24 17:45 Acetaminophen/ Hydrocodone Bitart 1 tab Q4HP PRN PO 09/29/24 11:30 09/29/24 21:53 1 TAB Amiodarone HCl 200 mg Q12HR PO 09/29/24 22:00 09/29/24 21:54 200 MG laboratory and microbiology Laboratory Tests 09/29/24 06:17 Test 09/29/24 06:17 Range/Units Serum Glucose 174 #H 74-106 mg/dL Assessment/Plan Patient is a 69-year-old gentleman who presented to the hospital with few days of shortness of breaths/palpitation and chest discomfort. He mentions that few days ago he was given different kind of marijuana and is concerned if it was laced with any other substance. Cardiology was involved for cardiac aspects of care. Patient is known to our practice from before and outside. Reportedly, in emergency room they were concerned about SVT and the patient was given adenosine (no lasting result). Later, the patient was started on IV amiodarone and at the time of evaluation the patient has converted back to sinus rhythm. There is concern about patient's compliance with medications. Obese gentleman, not in acute distress. Sitting in bed. Not using accessory muscles of breathing. Mucosa is pink and wet. No carotid bruit. No goiter. At the time of evaluation, lungs are clear to auscultation. Cardiac: Regular, no thrill. Systolic murmur 3/6 in apex is heard. Abdomen is soft. Is obese. Bowel sound is positive. There is no gross mass. Extremities reveal 2+ edema bilaterally. Dorsalis pedis is 2+ bilateral Past medical history includes diabetes mellitus, hypertension, hyperlipidemia, morbid obesity, paroxysmal AFib, status post previous atrial fibrillation ablation, heart failure, history of systolic heart failure, later improved in systolic function, HFimpEF, COPD, CKD and diverticulosis. Echocardiogram of October 19, 2021 had reported concentric left ventricular hypertrophy, ejection fraction of 25-30%, biatrial enlargement, decreased right ventricular systolic function, aortic root enlargement, mild mitral annular calcification, mild aortic sclerosis, mild MR/TR and right ventricular systolic pressure of 21 mm Hg. Echocardiogram of February 27 2023 (performed in the office) reported ejection fraction of 50-55%, moderate concentric left ventricular hypertrophy, mild biatrial enlargement, moderate MR, mild mitral annual calcification/TR/PI and right ventricular systolic pressure of 35 mm Hg. Echocardiogram of July 2024 (performed in the office) had revealed preserved ejection fraction, mild valvular disease and concentric left ventricular hypertrophy Left heart catheterization of 2018 had revealed no significant coronary artery disease and ejection fraction of 60% WBC: 11.1 - 8.9 Hemoglobin: 13.2 - 12.4 D-dimer: 0.61 Creatinine: 2.02 - 1.86 Potassium: 4.2 - 3.9 BNP: 259.00 Troponin (high sensitive): 14 - 13 - 16 - 14 - 15 - 11 TSH: 3.40 Urine tox was positive for Cannabinoids and Opiates Chest x-ray revealed: IMPRESSION: No acute cardiopulmonary disease. Venous duplex of lower ext: Impression: No sonographic evidence of bilateral lower extremity deep venous thrombosis. V/Q scan revealed:1. Normal VQ scan. Low probability for pulmonary embolism. KUB revealed: IMPRESSION: Comminuted inolving the inferior and superior right pubic ramus Arrival EKG revealed atrial fibrillation with RVR Later EKG revealed sinus rhythm, first-degree AV block, IVCD and nonspecific ST- T changes Tele reveals PAF Echocardiogram revealed: Technically difficult study secondary to poor acoustic windows. Left ventricle: Mild concentric left ventricle hypertrophy was seen. LVEF was around 60%. There was no gross wall motion abnormality, but its presence can not be ruled out on the basis of this study. Right ventricle was normal-sized with normal systolic function. Mild biatrial enlargement was observed. Aortic valve was not well visualized. There was mild aortic insufficiency. There was no aortic stenosis. There was mild mitral/tricuspid regurgitation. Pulmonary valve was not well visualized. Right ventricular systolic pressure was assessed around 30 mm Hg (normal). There was no pericardial effusion. Aortic root was mildly dilated at 4.0 cm. Patient is a 69-year-old gentleman who presented with generalized weakness/chest discomfort and shortness of breath. He was found to have atrial fibrillation with RVR. At that point there was concern about NSVT and adenosine was given unsuccessfully. Patient responded to IV amiodarone and converted back to sinus rhythm. Does have baseline history of paroxysmal AFib. Has had atrial fibrillation ablation before. Is noncompliant with medications. Does use marijuana and may have used other substance? Serial high sensitive troponin has been negative and presentation is not considered acute coronary syndrome. Does have history of systolic heart failure which later improved (have impaired if) Atrial fibrillation with RVR Paroxysmal AFib Leukocytosis Abnormal D-dimer Morbid obesity MARLENA on CKD Have impaired EF COPD Diabetes mellitus Morbid obesity PE ruled out, negative V/Q scan Cardiac suggestion for management: Manage on telemetry Follow-up electrolytes and kidney function tests and correct abnormalities. Keep potassium above 4 and magnesium above 2 Oral amiodarone (200 mg p.o. b.i.d. at this point) Long-term continuation of full anticoagulation (on Eliquis) Evaluation and management of findings of KUB as per primary team Lifestyle and risk factor modification Further evaluation and management depends on the above and clinical course A total of 55 minutes was spent reviewing the patient record, examining the patient, making a diagnostic and therapeutic plan, discussing this plan with medical personnel, following up on diagnostic studies and following the patient for clinical stability excluding any and all procedures. At least 50% of this time was spent in direct, [id number] contact. Thank you for allowing me to participate in this patient's care. Further recommendations will depend on patient's clinical course. Please do not hesitate to contact me if you have any questions or concerns. This medical document was created using electronic medical record system with [employer] computerized dictation system. Although this document has been carefully reviewed, there may still be some phonetic and typographical errors. These areas are purely typographical due to the imperfection of the software programs, and do not reflect any compromise in the patient's medical care. Plan discussed with: Patient, Other (nurse) DIPTI TOLEDO MD Sep 30, 2024 07:16
--- NOTE | 2024-09-30 08:24 | ECG ---
[facility] Test Date: 2024-09-29 Test Time: 18:26:08 Pat Name: ROBERT FLANNERY Department: Room: 0270T B Gender: M [employer] Equipment Installer: RN : [id number] Requested By: ALIYAH ARGUETA Order Number: [id number] Reading MD: Oskar Yadav Measurements Intervals [address] [place] Rate: 92 P: 88 WA: 203 QRS: -18 QRSD: 124 T: 108 QT: 366 QTc: 453 Interpretive Statements Unknown rhythm, irregular rate Left bundle branch block Electronically Signed On 09-30-2024 20:30:39 PDT by Oskar Yadav Please click the below link to view image of tracing.
[2024-09-30] MEDS ORDERED: AMIO200T13 PO (11:40)
--- NOTE | 2024-09-30 11:42 | DVHDS2 ---
Discharge Summary Date of Admission Sep 28, 2024 at 17:41 Date of Discharge: Sep 30, 2024 Admitting Diagnosis Acute afib no rvr Acute chest pain r/o nstemi Acute elevation in ddimer rule out pe Acute dyspnea likely copd but will need to rule out PE Congestive heart failure Diabetes type 2 GERD Hypertension History of MT Cardiac ablation Labs/Diagnostic Data: Laboratory Results Test 09/30/24 06:11 09/29/24 09:35 09/29/24 06:17 09/28/24 17:50 POC Glucose 153 mg/dl (70-106) Troponin I High Sensitivity 11 ng/L (</=54) White Blood Count 8.9 10^3/uL (4.4-10.8) Red Blood Count 4.10 10^6/uL (4.5-5.90) Hemoglobin 12.4 g/dL (13.5-17.5) Hematocrit 36.2 % (41.0-53.0) Mean Corpuscular Volume 88.4 fL (80.0-100.0) Mean Corpuscular Hemoglobin 30.2 pg (28.0-32.0) Mean Corpuscular Hemoglobin Concent 34.1 g/dL (32.0-36.0) Red Cell Distribution Width 13.6 % (11.8-14.3) Platelet Count 199 10^3/uL (140-450) Mean Platelet Volume 9.6 fL (6.9-10.8) Neutrophils (%) (Auto) 70.9 % (37.0-80.0) Lymphocytes (%) (Auto) 17.4 % (10.0-50.0) Monocytes (%) (Auto) 7.5 % (0.0-12.0) Eosinophils (%) (Auto) 3.2 % (0.0-7.0) Basophils (%) (Auto) 1.0 % (0.0-2.0) Neutrophils # (Auto) 6.3 10 ^3/uL (1.6-8.6) Lymphocytes # (Auto) 1.5 10 ^3/uL (0.4-5.4) Monocytes # (Auto) 0.7 10 ^3/uL (0-1.3) Eosinophils # (Auto) 0.3 10 ^3/uL (0-0.8) Basophils # (Auto) 0.1 10 ^3/uL (0-0.2) Nucleated Red Blood Cells 0.1 % Sodium Level 141 mmol/L (136-145) Potassium Level 3.9 mmol/L (3.5-5.1) Chloride Level 107 mmol/L (98-107) Carbon Dioxide Level 25 mmol/L (20-31) Anion Gap 9 (5-15) Blood Urea Nitrogen 23 mg/dL (9-23) Creatinine 1.86 mg/dL (0.700-1.30) Glomerular Filtration Rate Calc 39 mL/min (>90) BUN/Creatinine Ratio 12.4 (10.0-20.0) Serum Glucose 174 mg/dL (74-106) Calcium Level 8.8 mg/dL (8.7-10.4) Total Bilirubin 0.3 mg/dL (0.2-1.0) Aspartate Amino Transferase (AST) 105 U/L (13-40) Alanine Aminotransferase (ALT) 14 U/L (7-40) Alkaline Phosphatase 77 U/L (46-116) Total Protein 6.0 g/dL (5.7-8.2) Albumin 3.8 g/dL (3.2-4.8) Magnesium Level 2.0 mg/dL (1.6-2.6) Thyroid Stimulating Hormone (TSH) 3.40 uIU/mL (0.55-4.78) Test 09/28/24 15:15 09/28/24 12:44 Urine Color Light-yellow (Yellow) Urine Clarity Clear (Clear) Urine pH 5.0 (5.0-9.0) Urine Specific [place] 1.017 (1.001-1.035) Urine Protein Trace (Negative) Urine Ketones Negative (Negative) Urine Blood Negative /uL (Negative) Urine Nitrite Negative (Negative) Urine Bilirubin Negative (Negative) Urine Urobilinogen Normal mg/dL (Negative) Urine Leukocyte Esterase Negative /uL (Negative) Urine RBC 1 /hpf (0 - 3) Urine Microscopic WBC 2 /HPF (0-3) Urine Squamous Epithelial Cells Few /hpf (<5) Urine Bacteria None seen /hpf (None Seen) Urine Hyaline Casts Mod /lpf (0 - 2) Urine Mucus Few (None Seen) Urine Glucose 3+ mg/dL (Normal) Urine Opiates Screen Pos (NEGATIVE) Urine Fentanyl Screen Neg (NEGATIVE) Urine Barbiturates Screen Neg (NEGATIVE) Urine Phencyclidine Screen Neg (NEGATIVE) Urine Amphetamines Screen Neg (NEGATIVE) Urine Benzodiazepines Screen Neg (NEGATIVE) Urine Cocaine Screen Neg (NEGATIVE) Urine Cannabinoids Screen Pos (NEGATIVE) D-Dimer, Quantitative 0.61 mg/L FEU (0.0-0.49) B-Type Natriuretic Peptide 259.00 pg/mL (0-100) Other Laboratory Tests 09/29/24 06:17 Brief Hx & Hospital Course: This is a 69 years old male with past medical history of atrial fibrillation, congestive heart failure, COPD, diabetes type 2, hypertension, history of MT, cardiac ablation came to emergency department because of chest pain and shortness for breath. The patient apparently smoked some marijuana which he did not know it was laced with anything. But after he finished with the marijuana he started having heart palpitation. According to the patient's family the patient had a heart rate about 100 in had pain in midsternal chest so they decided to bring him to hospital for further evaluation. The patient does have atrial fibrillation with RVR in the ER department. The patient was started on amiodarone drip. Heart rate converted to AFib with normal rate. His poultry killer, Dr. Joshi switch the amiodarone drip to p.o. the patient also complained of shortness for breath and V/Q scan was order. V/Q scan showed low probability of pulmonary embolism. so I am going to discharge the patient home. Advised the patient to follow up with Dr. Gonzalez 1-2 weeks. Follow up with his primary care physician per schedule. Activity as tolerated. Diet per home diet. Physical exam: HEENT: Normocephalic atraumatic pupils equal react to light and accommodation. Extraocular muscles intact, conjunctiva pink, oropharynx moist, no thrush, no exudate. Lymphatic: No lymphadenopathy Cardiovascular exam: S1, S2 was heard. No murmurs, rubs, gallops Lung: Clear on auscultation bilaterally, no wheeze, rale, rhonchi. GI: Abdominal soft, nondistended, nontenderness, positive bowel sounds. Extremity: No crepitus, cyanosis, edema. Pedal pulses present bilateral. Full range of motion. Skin: Normal turgor, no rash. Psych: Alert, oriented x3. Neurology: No focal deficits, cranial nerve II to XII grossly intact. This medical document was created using an electronic medical record system with [employer] computerized dictation system. Although this document has been carefully reviewed, there may still be some phonetic and typographical errors. These areas are purely typographical due to imperfections of the software programs, and do not reflect any compromise in the patient's medical care. Condition at Discharge: Stable Final Diagnosis/Problems List Acute afib no rvr Acute chest pain r/o nstemi Acute elevation in ddimer rule out pe Acute dyspnea likely copd, PE rule out,VQ scan normal Congestive heart failure Diabetes type 2 GERD Hypertension History of MT Cardiac ablation Discharge Disposition: Home Discharge Statement: "Patient was advised to return to the ER or call 911 if any headaches, dizziness, shortness of breath, chest pain, abdominal pain, bleeding, fevers, or worsening of medical condition. Patient was counseled about treatment plan, medications, possible side effects, patientverbalized understanding. All questions were answered to the best of my ability. This discharge took greater then 30 minutes in planning, reviewing documentation, counseling the patient, and discussing with other team members." ASSESSMENT ASSESSMENT Assessment Date of Service: Sep 30, 2024 Billing Provider: ALIYAH ARGUETA MD Common Visit Codes: 88140-TZG/OBS DISCH DAY >30min ALIYAH ARGUETA MD Sep 30, 2024 11:42
[2024-09-30] MEDS: MORPHINE SULFATE INJ 2 MG/ml SYRG IV ONE (11:54)
[2024-09-30] MEDS: AMIODARONE 360mg/200mL PREMIX 200 ML IV SCH (16:50)
[2024-09-30] MEDS: MORPHINE SULFATE INJ 2 MG/ml SYRG IV PRN (19:28)
[2024-10-01 01:00] VITALS: BP 100/53; PULSE 76; RESP 17; TEMP 98.4; O2SAT 95
[2024-10-01 05:00] VITALS: BP 112/70; PULSE 76; RESP 18; TEMP 98.1; O2SAT 93
--- NOTE | 2024-10-01 07:06 | DVHPN2 ---
Progress Note - Dictate Date Seen: Oct 01, 2024 Medical Necessity Reason Pt with a Central, PICC or Fol: No vital signs Vital Sign Date Time Temp Pulse Resp B/P (MAP) Pulse Ox O2 Delivery O2 Flow Rate FiO2 10/01/24 06:43 87 18 112/70 10/01/24 05:00 98.1 93 98.1 09/30/24 21:47 Room Air* 0 21 Total Intake and Output 09/30/24 09/30/24 10/01/24 15:00 23:00 07:00 Intake Total 708 ml 450 ml 500 ml Output Total 850 ml 450 ml Balance 708 ml -400 ml 50 ml medications Current Medications Medications Dose Ordered Sig/Ted Route Start Time Stop Time Status Last Admin Dose Admin Amiodarone HCl 200 mg Q12HR PO 09/28/24 22:00 UNV Apixaban 5 mg BID PO 09/28/24 22:00 09/30/24 22:05 5 MG Atorvastatin Calcium 20 mg HS PO 09/28/24 22:00 09/30/24 22:04 20 MG Carvedilol 25 mg Q12HR PO 09/29/24 10:00 09/30/24 22:05 25 MG Diltiazem HCl 30 mg Q8HR PO 09/29/24 22:00 10/01/24 06:23 30 MG Lisinopril 40 mg DAILY PO 09/29/24 10:00 09/30/24 09:44 40 MG Furosemide 40 mg BIDD IV 09/28/24 18:00 10/01/24 06:23 40 MG Pantoprazole Sodium 40 mg DAILY IV 09/29/24 10:00 09/30/24 10:00 40 MG Aspirin 81 mg DAILY PO 09/29/24 10:00 09/30/24 09:25 81 MG Morphine Sulfate 2 mg Q30MP PRN IV 09/28/24 17:45 09/29/24 20:04 2 MG Ondansetron HCl 4 mg Q4HP PRN IV 09/28/24 17:45 Nitroglycerin 0.4 mg Q5MINP PRN SL 09/28/24 17:45 09/29/24 18:58 0.4 MG Diagnostic Test (Pha) 1 strip ACHS 09/28/24 22:00 10/01/24 06:22 1 STRIP Insulin Human Regular AC SC 09/29/24 07:00 10/01/24 06:21 2 UNITS Insulin Human Regular HS SC 09/28/24 22:00 09/30/24 22:12 3 UNITS Dextrose 50 ml UD PRN IV 09/28/24 17:45 Albuterol 2.5 mg Q4HPRN PRN NEB 09/28/24 17:45 Cancel Ipratropium Pablo 0.5 mg Q4HPRN PRN NEB 09/28/24 17:45 Cancel Acetaminophen/ Hydrocodone Bitart 1 tab Q4HP PRN PO 09/29/24 11:30 09/30/24 22:04 1 TAB Amiodarone HCl 200 mg Q12HR PO 09/29/24 22:00 09/30/24 22:04 200 MG Morphine Sulfate 2 mg Q6HPRN PRN IV 09/30/24 17:00 10/01/24 06:43 2 MG laboratory and microbiology Laboratory Tests 09/29/24 06:17 Test 09/29/24 06:17 Range/Units Serum Glucose 174 #H 74-106 mg/dL Assessment/Plan Patient is a 69-year-old gentleman who presented to the hospital with few days of shortness of breaths/palpitation and chest discomfort. He mentions that few days ago he was given different kind of marijuana and is concerned if it was laced with any other substance. Cardiology was involved for cardiac aspects of care. Patient is known to our practice from before and outside. Reportedly, in emergency room they were concerned about SVT and the patient was given adenosine (no lasting result). Later, the patient was started on IV amiodarone and at the time of evaluation the patient has converted back to sinus rhythm. There is concern about patient's compliance with medications. Obese gentleman, not in acute distress. Sitting in bed. Not using accessory muscles of breathing. Mucosa is pink and wet. No carotid bruit. No goiter. At the time of evaluation, lungs are clear to auscultation. Cardiac: Regular, no thrill. Systolic murmur 3/6 in apex is heard. Abdomen is soft. Is obese. Bowel sound is positive. There is no gross mass. Extremities reveal 2+ edema bilaterally. Dorsalis pedis is 2+ bilateral Past medical history includes diabetes mellitus, hypertension, hyperlipidemia, morbid obesity, paroxysmal AFib, status post previous atrial fibrillation ablation, heart failure, history of systolic heart failure, later improved in systolic function, HFimpEF, COPD, CKD and diverticulosis. Echocardiogram of October 19, 2021 had reported concentric left ventricular hypertrophy, ejection fraction of 25-30%, biatrial enlargement, decreased right ventricular systolic function, aortic root enlargement, mild mitral annular calcification, mild aortic sclerosis, mild MR/TR and right ventricular systolic pressure of 21 mm Hg. Echocardiogram of February 27 2023 (performed in the office) reported ejection fraction of 50-55%, moderate concentric left ventricular hypertrophy, mild biatrial enlargement, moderate MR, mild mitral annual calcification/TR/PI and right ventricular systolic pressure of 35 mm Hg. Echocardiogram of July 2024 (performed in the office) had revealed preserved ejection fraction, mild valvular disease and concentric left ventricular hypertrophy Left heart catheterization of 2017 had revealed no significant coronary artery disease and ejection fraction of 60% WBC: 11.1 - 8.9 Hemoglobin: 13.2 - 12.4 D-dimer: 0.61 Creatinine: 2.02 - 1.86 Potassium: 4.2 - 3.9 BNP: 259.00 Troponin (high sensitive): 14 - 13 - 16 - 14 - 15 - 11 - 13 - 14 - 13 TSH: 3.40 Urine tox was positive for Cannabinoids and Opiates Chest x-ray revealed: IMPRESSION: No acute cardiopulmonary disease. Venous duplex of lower ext: Impression: No sonographic evidence of bilateral lower extremity deep venous thrombosis. V/Q scan revealed:1. Normal VQ scan. Low probability for pulmonary embolism. KUB revealed: IMPRESSION: Comminuted inolving the inferior and superior right pubic ramus Arrival EKG revealed atrial fibrillation with RVR Later EKG revealed sinus rhythm, first-degree AV block, IVCD and nonspecific ST- T changes Tele reveals PAF Echocardiogram revealed: Technically difficult study secondary to poor acoustic windows. Left ventricle: Mild concentric left ventricle hypertrophy was seen. LVEF was around 60%. There was no gross wall motion abnormality, but its presence can not be ruled out on the basis of this study. Right ventricle was normal-sized with normal systolic function. Mild biatrial enlargement was observed. Aortic valve was not well visualized. There was mild aortic insufficiency. There was no aortic stenosis. There was mild mitral/tricuspid regurgitation. Pulmonary valve was not well visualized. Right ventricular systolic pressure was assessed around 30 mm Hg (normal). There was no pericardial effusion. Aortic root was mildly dilated at 4.0 cm. Patient is a 69-year-old gentleman who presented with generalized weakness/chest discomfort and shortness of breath. He was found to have atrial fibrillation with RVR. At that point there was concern about NSVT and adenosine was given unsuccessfully. Patient responded to IV amiodarone and converted back to sinus rhythm. Does have baseline history of paroxysmal AFib. Has had atrial fibrillation ablation before. Is noncompliant with medications. Does use marijuana and may have used other substance? Serial high sensitive troponin has been negative and presentation is not considered acute coronary syndrome. Does have history of systolic heart failure which later improved (have impaired if) Atrial fibrillation with RVR Paroxysmal AFib Leukocytosis Abnormal D-dimer Morbid obesity MARLENA on CKD Have impaired EF COPD Diabetes mellitus Morbid obesity PE ruled out, negative V/Q scan Cardiac suggestion for management: Manage on telemetry Follow-up electrolytes and kidney function tests and correct abnormalities. Keep potassium above 4 and magnesium above 2 Oral amiodarone (200 mg p.o. b.i.d. at this point) Long-term continuation of full anticoagulation (on Eliquis) Evaluation and management of findings of KUB as per primary team Lifestyle and risk factor modification Further evaluation and management depends on the above and clinical course A total of 55 minutes was spent reviewing the patient record, examining the patient, making a diagnostic and therapeutic plan, discussing this plan with medical personnel, following up on diagnostic studies and following the patient for clinical stability excluding any and all procedures. At least 50% of this time was spent in direct, [id number] contact. Thank you for allowing me to participate in this patient's care. Further recommendations will depend on patient's clinical course. Please do not hesitate to contact me if you have any questions or concerns. This medical document was created using electronic medical record system with [employer] computerized dictation system. Although this document has been carefully reviewed, there may still be some phonetic and typographical errors. These areas are purely typographical due to the imperfection of the software programs, and do not reflect any compromise in the patient's medical care. Plan discussed with: Patient, Other (nurse) DIPTI TOLEDO MD Oct 01, 2024 07:06
--- NOTE | 2024-10-01 07:29 | DVHPN2 ---
Eyes: No Pain, No Vision change, No Conjunctivae inflammation, No Eyelid inflammation, No Other, No Redness ENT: No Ear pain, No Ear discharge, No Nose pain, No Nose discharge, No Nose congestion, No Mouth pain, No Mouth swelling, No Throat pain, No Throat swelling, No Other Cardiovascular: Chest Pain, Palpitations; No Orthopnea, No Paroxysmal Noc. Dyspnea, No Edema, No Lt Headedness, No Other Respiratory: No Cough, No Dry; Shortness of breath, SOB with excertion; No Wheezing, No Hemoptysis, No Pleuritic Pain, No Sputum, No Other Gastrointestinal: No Nausea, No Vomiting, No Abdominal Pain, No Diarrhea, No Constipation, No Melena, No Hematochezia, No Other Genitourinary: No Dysuria, No Frequency, No Incontinence, No Hematuria, No Retention, No Other Musculoskeletal: No other, No neck pain, No shoulder pain, No arm pain, No back pain, No hand pain, No leg pain, No foot pain Skin: No Rash, No Lesions, No Jaundice, No Bruising, No Other Objective Vitals Vital Signs Date Time Temp Pulse Resp B/P (MAP) Pulse Ox O2 Delivery O2 Flow Rate FiO2 10/01/24 06:43 87 18 112/70 10/01/24 05:00 98.1 93 98.1 09/30/24 21:47 Room Air* 0 21 Intake/Output Intake and Output 10/01/24 07:00 Intake Total 1658 ml Output Total 1300 ml Balance 358 ml Intake Oral 1658 ml Output Urine Total 1300 ml # Bowel Movements 1 Medications Current Medications Medications Dose Ordered Sig/Ted Route Start Time Stop Time Status Last Admin Dose Admin Amiodarone HCl 200 mg Q12HR PO 09/28/24 22:00 UNV Apixaban 5 mg BID PO 09/28/24 22:00 09/30/24 22:05 5 MG Atorvastatin Calcium 20 mg HS PO 09/28/24 22:00 09/30/24 22:04 20 MG Carvedilol 25 mg Q12HR PO 09/29/24 10:00 09/30/24 22:05 25 MG Diltiazem HCl 30 mg Q8HR PO 09/29/24 22:00 10/01/24 06:23 30 MG Lisinopril 40 mg DAILY PO 09/29/24 10:00 09/30/24 09:44 40 MG Furosemide 40 mg BIDD IV 09/28/24 18:00 10/01/24 06:23 40 MG Pantoprazole Sodium 40 mg DAILY IV 09/29/24 10:00 09/30/24 10:00 40 MG Aspirin 81 mg DAILY PO 09/29/24 10:00 09/30/24 09:25 81 MG Morphine Sulfate 2 mg Q30MP PRN IV 09/28/24 17:45 09/29/24 20:04 2 MG Ondansetron HCl 4 mg Q4HP PRN IV 09/28/24 17:45 Nitroglycerin 0.4 mg Q5MINP PRN SL 09/28/24 17:45 09/29/24 18:58 0.4 MG Diagnostic Test (Pha) 1 strip ACHS 09/28/24 22:00 10/01/24 06:22 1 STRIP Insulin Human Regular AC SC 09/29/24 07:00 10/01/24 06:21 2 UNITS Insulin Human Regular HS SC 09/28/24 22:00 09/30/24 22:12 3 UNITS Dextrose 50 ml UD PRN IV 09/28/24 17:45 Albuterol 2.5 mg Q4HPRN PRN NEB 09/28/24 17:45 Cancel Ipratropium [employer] 0.5 mg Q4HPRN PRN NEB 09/28/24 17:45 Cancel Acetaminophen/ Hydrocodone Bitart 1 tab Q4HP PRN PO 09/29/24 11:30 09/30/24 22:04 1 TAB Amiodarone HCl 200 mg Q12HR PO 09/29/24 22:00 09/30/24 22:04 200 MG Morphine Sulfate 2 mg Q6HPRN PRN IV 09/30/24 17:00 10/01/24 06:43 2 MG Laboratory Results Laboratory Tests 09/29/24 06:17 Urinalysis Test 09/28/24 15:15 Urine Color Light-yellow (Yellow) Urine Clarity Clear (Clear) Urine pH 5.0 (5.0-9.0) Urine Specific [place] 1.017 (1.001-1.035) Urine Protein Trace (Negative) H Urine Ketones Negative (Negative) Urine Blood Negative /uL (Negative) Urine Nitrite Negative (Negative) Urine Bilirubin Negative (Negative) Urine Urobilinogen Normal mg/dL (Negative) Urine Leukocyte Esterase Negative /uL (Negative) Urine RBC 1 /hpf (0 - 3) Urine Microscopic WBC 2 /HPF (0-3) Urine Squamous Epithelial Cells Few /hpf (<5) Urine Bacteria None seen /hpf (None Seen) Urine Hyaline Casts Mod /lpf (0 - 2) Urine Mucus Few (None Seen) Urine Glucose 3+ mg/dL (Normal) H Assessment/Plan My Orders Orders - ALIYAH ARGUETA MD Procedure Category Date Status Time Amiodarone PHA 09/30/24 In Process 360mg/200ml Premix 16:50 Morphine Sulfate PHA 09/30/24 In Process Injection 17:00 Pharmacy [facility] 09/30/24 In Process Clarification: 16:52 Electrocardigram EKG 09/30/24 Logged 17:03 ALIYAH ARGUETA MD Oct 01, 2024 07:29
[2024-10-01 08:00] VITALS: BP 119/57; PULSE 81; PULSE 98; RESP 20; TEMP 97.6; O2SAT 95; O2SAT 98
--- NOTE | 2024-10-01 08:06 | ECG ---
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
[2024-10-01 10:00] VITALS: O2SAT 95
[2024-10-01 12:00] VITALS: BP 125/77; PULSE 78; RESP 20; TEMP 98.2; O2SAT 95
--- NOTE | 2024-10-01 12:25 | DVHPN2 ---
Subjective The patient is seen and examined at bedside. Today the patient had no her palpitation. The patient's discharge was held yesterday because his heart rate was up to 160 when we get ready to send him home. The patient was started back on amiodarone drip. This morning Dr. Gonzalez his print graphic designer stopped the amiodarone drip and switch him back to oral amiodarone. So far heart rate controlled in the 70 to 80s Reviewed: Care Plan, H&P, Labs, Medications, Previous Orders, Radiology Changes from previous H/P or p: No Changes Eyes: No Pain, No Vision change, No Conjunctivae inflammation, No Eyelid inflammation, No Other, No Redness ENT: No Ear pain, No Ear discharge, No Nose pain, No Nose discharge, No Nose congestion, No Mouth pain, No Mouth swelling, No Throat pain, No Throat swelling, No Other Cardiovascular: Chest Pain, Palpitations; No Orthopnea, No Paroxysmal Noc. Dyspnea, No Edema, No Lt Headedness, No Other Respiratory: No Cough, No Dry; Shortness of breath, SOB with excertion; No Wheezing, No Hemoptysis, No Pleuritic Pain, No Sputum, No Other Gastrointestinal: No Nausea, No Vomiting, No Abdominal Pain, No Diarrhea, No Constipation, No Melena, No Hematochezia, No Other Genitourinary: No Dysuria, No Frequency, No Incontinence, No Hematuria, No Retention, No Other Musculoskeletal: No other, No neck pain, No shoulder pain, No arm pain, No back pain, No hand pain, No leg pain, No foot pain Skin: No Rash, No Lesions, No Jaundice, No Bruising, No Other Objective Vitals Vital Signs Date Time Temp Pulse Resp B/P (MAP) Pulse Ox O2 Delivery O2 Flow Rate FiO2 10/01/24 10:28 119/57 10/01/24 10:27 81 10/01/24 08:00 97.6 20 95 97.6 09/30/24 21:47 Room Air* 0 21 Intake/Output Intake and Output 10/01/24 07:00 Intake Total 1658 ml Output Total 1300 ml Balance 358 ml Intake Oral 1658 ml Output Urine Total 1300 ml # Bowel Movements 1 General Appearance: Alert, Oriented X3, Cooperative, No acute distress HEENT: Atraumatic, PERRLA, EOMI, Mucous membr. moist/pink Neck: Supple Lungs: Clear to auscultation, Normal air movement Cardiovascular: Regular rate, Normal S1, Normal S2, No murmurs, Gallops, Rubs Abdomen: Normal bowel sounds, Soft, No tenderness Neuro: Cranial nerves 3-12 NL Psych/Mental Status: Mental status NL Medications Current Medications Medications Dose Ordered Sig/Ted Route Start Time Stop Time Status Last Admin Dose Admin Amiodarone HCl 200 mg Q12HR PO 09/28/24 22:00 UNV Apixaban 5 mg BID PO 09/28/24 22:00 10/01/24 10:28 5 MG Atorvastatin Calcium 20 mg HS PO 09/28/24 22:00 09/30/24 22:04 20 MG Carvedilol 25 mg Q12HR PO 09/29/24 10:00 10/01/24 10:27 25 MG Diltiazem HCl 30 mg Q8HR PO 09/29/24 22:00 10/01/24 06:23 30 MG Lisinopril 40 mg DAILY PO 09/29/24 10:00 10/01/24 10:28 40 MG Furosemide 40 mg BIDD IV 09/28/24 18:00 10/01/24 06:23 40 MG Pantoprazole Sodium 40 mg DAILY IV 09/29/24 10:00 10/01/24 11:25 40 MG Aspirin 81 mg DAILY PO 09/29/24 10:00 10/01/24 10:28 81 MG Morphine Sulfate 2 mg Q30MP PRN IV 09/28/24 17:45 09/29/24 20:04 2 MG Ondansetron HCl 4 mg Q4HP PRN IV 09/28/24 17:45 Nitroglycerin 0.4 mg Q5MINP PRN SL 09/28/24 17:45 09/29/24 18:58 0.4 MG Diagnostic Test (Pha) 1 strip ACHS 09/28/24 22:00 10/01/24 11:40 1 STRIP Insulin Human Regular AC SC 09/29/24 07:00 10/01/24 11:47 8 UNITS Insulin Human Regular HS SC 09/28/24 22:00 09/30/24 22:12 3 UNITS Dextrose 50 ml UD PRN IV 09/28/24 17:45 Albuterol 2.5 mg Q4HPRN PRN NEB 09/28/24 17:45 Cancel Ipratropium [place] 0.5 mg Q4HPRN PRN NEB 09/28/24 17:45 Cancel Acetaminophen/ Hydrocodone Bitart 1 tab Q4HP PRN PO 09/29/24 11:30 10/01/24 11:25 1 TAB Amiodarone HCl 200 mg Q12HR PO 09/29/24 22:00 10/01/24 10:27 200 MG Morphine Sulfate 2 mg Q6HPRN PRN IV 09/30/24 17:00 10/01/24 06:43 2 MG Laboratory Results Laboratory Tests 09/29/24 06:17 Urinalysis Test 09/28/24 15:15 Urine Color Light-yellow (Yellow) Urine Clarity Clear (Clear) Urine pH 5.0 (5.0-9.0) Urine Specific [place] 1.017 (1.001-1.035) Urine Protein Trace (Negative) H Urine Ketones Negative (Negative) Urine Blood Negative /uL (Negative) Urine Nitrite Negative (Negative) Urine Bilirubin Negative (Negative) Urine Urobilinogen Normal mg/dL (Negative) Urine Leukocyte Esterase Negative /uL (Negative) Urine RBC 1 /hpf (0 - 3) Urine Microscopic WBC 2 /HPF (0-3) Urine Squamous Epithelial Cells Few /hpf (<5) Urine Bacteria None seen /hpf (None Seen) Urine Hyaline Casts Mod /lpf (0 - 2) Urine Mucus Few (None Seen) Urine Glucose 3+ mg/dL (Normal) H Labs and/or images reviewed: Labs reviewed by me Assessment/Plan Assessment/Plan Acute afib no rvr Acute chest pain r/o nstemi Acute elevation in ddimer rule out pe Acute dyspnea likely copd , V/Q scan is negative, low probability for PE Congestive heart failure Diabetes type 2 GERD Hypertension History of [place] Cardiac ablation Continuing current management with oral amiodarone. I discharge the patient home today. Advised the patient to follow up with Dr. Gonzalez in 2-3 weeks. Follow up with his primary care physician per schedule. This medical document was created using an electronic medical record system with [employer] direct computerized dictation system. Although this document has been carefully reviewed, there may still be some phonetic and typographical errors. These areas are purely typographical due to imperfections of the software programs, and do not reflect any compromise in the patient's medical care. Plan discussed with: Patient My Orders Orders - ALIYAH ARGUETA MD Procedure Category Date Status Time Amiodarone PHA 09/30/24 In Process 360mg/200ml Premix 16:50 Morphine Sulfate PHA 09/30/24 In Process Injection 17:00 Pharmacy [facility] 09/30/24 In Process Clarification: 16:52 Electrocardigram EKG 10/01/24 Logged 11:12 Date of Service: Oct 01, 2024 Billing Provider: ALIYAH ARGUETA MD Common Visit Codes: [id number] INP/OBS CARE(HIGH) ALIYAH ARGUETA MD Oct 01, 2024 12:25
[2024-10-01 13:38] VITALS: BP 125/77; PULSE 78; TEMP 36.4
--- NOTE | 2024-10-01 14:50 | ECG ---
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 Prolonged NM interval Nonspecific intraventricular conduction delay Minimal ST depression, lateral leads Electronically Signed On 10-06-2024 20:29:23 PDT by Oskar Yadav Please click the below link to view image of tracing.
== END 2024-10-01 14:40 | disposition home or self-care (01) | DRG 291 ==
LOC: EDBD 12:17 → ER 12:17 → OVERFLOW 17:41 → TELE-WESTW 21:41
PROVIDERS: ADMIT Internal Medicine; ATTEND Internal Medicine
DX: I13.0 Hypertensive heart and chronic kidney disease with heart failure and stage 1 through stage 4 chronic kidney disease, or unspecified chronic kidney disease (principal); I50.43 Acute on chronic combined systolic (congestive) and diastolic (congestive) heart failure; J96.00 Acute respiratory failure, unspecified whether with hypoxia or hypercapnia; I47.10 Supraventricular tachycardia, unspecified; N17.9 Acute kidney failure, unspecified; I44.0 Atrioventricular block, first degree; N18.9 Chronic kidney disease, unspecified; J44.9 Chronic obstructive pulmonary disease, unspecified; I48.0 Paroxysmal atrial fibrillation; E78.5 Hyperlipidemia, unspecified; E66.01 Morbid (severe) obesity due to excess calories; D72.829 Elevated white blood cell count, unspecified; E11.22 Type 2 diabetes mellitus with diabetic chronic kidney disease; I07.1 Rheumatic tricuspid insufficiency; K21.9 Gastro-esophageal reflux disease without esophagitis; I34.81 Nonrheumatic mitral (valve) annulus calcification; Z79.899 Other long term (current) drug therapy; Z79.01 Long term (current) use of anticoagulants; Z88.1 Allergy status to other antibiotic agents; Z82.49 Family history of ischemic heart disease and other diseases of the circulatory system; Z68.38 Body mass index [BMI] 38.0-38.9, adult; Z91.148 Patient's other noncompliance with medication regimen for other reason
CPT/HCPCS: 36415; 71045; 74018; 78582; 80048; 80053; 80307; 81001; 82962; 83735; 83880; 84443; 84484; 85025; 85379; 93005; 93306; 93970; 96365; 96372; 96375; 99291; G0378; J1815; J2405; J2470

== ENCOUNTER 2025-02-01 06:19 | Day surgery (SDC) | payer OTHER, MEDICAID ==
[~2025-02-01] VITALS: Ht 190.5 cm; Wt 140.2 kg
[2025-02-01] VITALS (7 sets, daily range): BP systolic 127–162; BP diastolic 77–111; PULSE 88–110; RESP 12–17; TEMP 97.9; O2SAT 93–95
[~2025-02-01 06:19] MED LIST changes: -AMIO100T3 PO; +AMIO200T13 PO; -AMIO200T33 PO; -AMOX875T4 PO; -ATOR-507 PO; -ATOR20TA PO; -CARV12.544 PO; -CARV25TA55 PO; -GLIP5TAB21 PO; -INSU1INJ19 SC; -ONDA-144 PO; -TAMS0.4C39 PO
[2025-02-01] MEDS: IODIXANOL 320MG/ML 100ML BTL IV ONE (07:32)
[2025-02-01] MEDS: HEPARIN SODIUM (PORCINE) 5000 UNITS/ML 1ML VIAL ONE (07:57)
[2025-02-01] MEDS: SODIUM CHL 0.9% 0 ML ONE (07:57)
[2025-02-01] MEDS: VERAPAMIL 2.5MG/ML INJ 2ML VIAL IV ONE (07:57)
[2025-02-01] MEDS: LIDOCAINE 2%HCL (LOCAL ANESTH.) INJ 20ML MDV ONE (07:57)
[2025-02-01] MEDS: ANGIOMAX 250 MG VIAL IV ONE (07:57)
[2025-02-01] MEDS: fentaNYL CITRATE 100 MCG/2 ML VL ONE (08:10)
[2025-02-01] MEDS: MIDAZOLAM HCL 2MG/2ML 2ml VIAL (1mg/ml) ONE (08:10)
--- NOTE | 2025-02-01 09:17 | DVHOP2 ---
Operative Report Procedures performed: Left heart catheterization and bilateral coronary angiogram Moderate sedation Diagnosis: Nonobstructive coronary artery disease LVEF of 40% Nonischemic cardiomyopathy Cardiac suggestion for management: Optimized medical therapy Guideline directed medical therapy for heart failure Lifestyle and risk factor modifications Findings: LVEF: 40% LVEDP was 12 mm Hg There was no transaortic valve pressure gradient Left main: Left main was coming off the left sinus of Valsalva. There was no angiographic evidence of disease in left main. LAD: LAD was coming off the left main. It provided usual numbers of Diagonals and Septals. Mid LAD revealed mild disease. Other portions of LAD and branches were free of disease. Ramus intermedius: Ramus intermedius was medium-sized vessel with no angiographic evidence of disease. LCX: LCX was coming off the left main. LCX throughout its course and branches was free of disease. RCA: RCA was coming off the right sinus of Valsalva. It was a dominant vessel. It provided RPDA. There was mild disease throughout its course. Presentation: Patient is a 69-year-old gentleman who presented to the office with worsening ejection fraction. Past medical history includes atrial flutter and status post DARELL cardioversion, morbid obesity, atrial fibrillation, hyperlipidemia, GERD, COPD, CKD, diabetes mellitus and heart failure. Echocardiogram of July 2024 revealed ejection fraction of 65-70%. Echocardiogram of October 2024 in [facility] revealed ejection fraction of 35%. It is of note that the patient was cardioverted at that time to sinus rhythm. With worsening left ventricular systolic function, the patient was sent for cardiac catheterization. Procedure: After obtaining informed consent, the patient was brought to the salvage laborer. He was prepped and draped in sterile fashion. 1 mg of Versed and 75 mcg of fentanyl were used for moderate sedation (lasting more than 30 minutes). Using Seldinger technique, the right radial artery was accessed and a 6 [place] slender sheath was inserted into it. 2.5 mg of verapamil and 100 mcg of nitroglycerin were given as a cocktail into the right radial sheath. 5000 units of heparin was given peripherally. A 5 Cambodian tiger 4 diagnostic catheter was used to perform left heart catheterization (obtaining pressures and performing left ventriculography) and left coronary angiography. A 6 [place] JR4 guiding catheter was used to perform right coronary angiography. There was no indication for any transcatheter revascularization. Total bleeding was less than 10 mL. There was no dissection/hematoma/perforation. Patient tolerated the procedure with no complication. Right radial artery access site was managed by deploying a TR band. Fluoroscopy time: 10.3 minutes contrast: 100 mL of DIPTI Cast MD Feb 01, 2025 09:17
[2025-02-01] MEDS: HYDROcodone-ACET 10/325MG TAB PO ONE (10:36)
== END 2025-02-01 11:40 | disposition home or self-care (01) ==
LOC: CATH 06:19
PROVIDERS: ATTEND Internal Medicine Cardiovascular Disease
DX: I25.10 Atherosclerotic heart disease of native coronary artery without angina pectoris (principal); I48.91 Unspecified atrial fibrillation; I42.8 Other cardiomyopathies; E11.22 Type 2 diabetes mellitus with diabetic chronic kidney disease; E66.01 Morbid (severe) obesity due to excess calories; E78.5 Hyperlipidemia, unspecified; I50.9 Heart failure, unspecified; J44.9 Chronic obstructive pulmonary disease, unspecified; N18.9 Chronic kidney disease, unspecified; I48.92 Unspecified atrial flutter; Z79.899 Other long term (current) drug therapy; Z98.890 Other specified postprocedural states
CPT/HCPCS: 93458; C1769; C1894; J1644; J2250; J3010; Q9967; 99152; 99153